=== PATIENT | female | born 1995 | race Caucasian/White ===

== ENCOUNTER 2020-02-22 21:08 | Emergency (ER) | payer BC, SELFPAY ==
--- NOTE | 2020-02-22 21:09 | ECG_ITS ---
Measurements Intervals [place] Rate: 84 P: 18 LA: 130 QRS: 57 QRSD: 87 T: 22 QT: 364 QTc: 431 Interpretive Statements SINUS RHYTHM BASELINE ARTIFACT- I, II, AVR, AVL, AVF NORMAL ECG Electronically Signed On 02-23-2020 6:51:10 CDT by Chace Bolanos D.O.
[2020-02-22 21:10] VITALS: BP 142/62; PULSE 88; RESP 16; TEMP 36.5; O2SAT 100
[2020-02-22 23:14] VITALS: BP 118/67; PULSE 76; RESP 16; TEMP 36.3; O2SAT 99
--- NOTE | 2020-02-23 00:02 | ED.GENADULT ---
HPI - General Adult General Chief complaint: Arrhythmia/Palpitations Stated complaint: 25 wks preg, elevated HR Time Seen by Provider: 02/22/20 23:35 History of Present Illness HPI narrative: Patient is a 24-year-old female who presents ER with concerns of palpitations and epigastric discomfort. Patient felt tightness to her sternum and then it moved up into her chest. She felt like her heart was racing it was going 97 bpm. No lightheadedness. [place] recurrence of the discomfort and came in for evaluation. Reports she has had issues with acid reflux throughout her but was not having burning in her stomach or back of her throat. No association with food that she can tell. No aggravating or alleviating factors. Related Data Home Medications Medication Instructions Recorded Confirmed No Home Medications 02/22/20 02/22/20 Allergies Allergy/AdvReac Type Severity Reaction Status Date / Time bee venom protein (honey bee) Allergy Numbness Verified 02/22/20 21:14 [bees] Review of Systems Review of Systems: All systems reviewed & are unremarkable except as noted in HPI and below Constitutional: Constitutional: Denies chills, Denies fever(s) and Denies weakness ENT: Denies nasal congestion and Denies sore throat Cardiovascular: Cardiovascular: Denies chest pain and Reports rapid heart rate Respiratory: Respiratory: Denies cough, Reports dyspnea and Denies wheezing Gastrointestinal: Gastrointestinal: Denies abdominal pain, Denies diarrhea, Denies nausea and Denies vomiting PMFSH Past Medical History Medical History (Updated 02/23/20 @ 01:49 by David Fernandez MD) GERD (gastroesophageal reflux disease) Surgical History Surgical History (Updated 02/23/20 @ 01:07 by David Fernandez MD) No pertinent past surgical history Family History Family History (Updated 04/17/16 @ 12:40 by DOCTOR UNKNOWN) Grandparent Diabetes mellitus Mother Diabetes mellitus Social History Social History Smoking status: Never smoker Alcohol intake: current Gender identity (if verbalized by the patient): Female Exam Narrative: Exam Narrative: GENERAL: Well-appearing, well-nourished, and in no acute distress. HEAD: Normocephalic, atraumatic. ENT: Mucous membranes moist. CHEST: Clear to auscultation. No respiratory distress. HEART: Regular rate and rhythm. Normal peripheral pulses. ABDOMEN: Soft, nontender, nondistended, gravid, normal active bowel sounds. EXTREMITIES: Normal range of motion. No edema. SKIN: Warm, dry, no rash. NEURO: Alert and oriented x3. Course Course Emergency Course: Symptoms resolved with GI cocktail. Discharge home. Vital Signs Vital signs: Vital Signs Temperature 97.7 F 02/22/20 21:10 Pulse Rate 88 02/22/20 21:10 Respiratory Rate 16 02/22/20 21:10 Blood Pressure 142/62 H 02/22/20 21:10 Pulse Oximetry 100 02/22/20 21:10 Temperature 97.3 F L 02/22/20 23:14 Pulse Rate 82 02/23/20 00:24 Respiratory Rate 16 02/23/20 00:24 Blood Pressure 119/55 L 02/23/20 00:24 Pulse Oximetry 98 02/23/20 00:24 Medical Decision Making Vital Signs Vital Signs: Vital Signs Temperature 97.7 F 02/22/20 21:10 Pulse Rate 88 02/22/20 21:10 Respiratory Rate 16 02/22/20 21:10 Blood Pressure 142/62 H 02/22/20 21:10 Pulse Oximetry 100 02/22/20 21:10 Temperature 97.3 F L 02/22/20 23:14 Pulse Rate 82 02/23/20 00:24 Respiratory Rate 16 02/23/20 00:24 Blood Pressure 119/55 L 02/23/20 00:24 Pulse Oximetry 98 02/23/20 00:24 Lab Data Result diagrams: 02/23/20 00:00 02/23/20 00:00 Labs: Lab Results 02/23/20 02/23/20 02/23/20 Range/Units 00:00 00:00 00:00 WBC 12.0 H (4.5-10.0) K/mm3 RBC 3.83 L (4.2-5.4) M/mm3 Hgb 11.7 L (12.0-15.0) g/dL Hct 33.7 L (37.0-47.0) % MCV 88.0 (80-100) fl MCH 30.5 (26-34) pg MCHC 34.7 (32-36) g/dl RDW 13.1 (11.5-1
[2020-02-23 00:09] LABS: Basophils Percent Auto 0.1 % (0.2-1.2); Eosinophils Absolute Auto 0.1 K/mm3 (0-0.3); Eosinophils Percent Auto 0.4 % (0-4.4); Hematocrit 33.7 % (37.0-47.0); Hemoglobin 11.7 g/dL (12.0-15.0); Immature Granulocyte Absolute 0.08 K/mm3 (0.00-0.031); Immature Granulocyte Percent A 0.7 % (0-0.5); Lymphocytes Absolute Auto 2.19 K/mm3 (0.9-3.2); Lymphocytes Percent Auto 18.2 % (18.3-44.2); Mean Corpuscular HGB Conc 34.7 g/dl (32-36); Mean Corpuscular Hemoglobin 30.5 pg (26-34); Mean Platelet Volume 10.1 fl (7.4-10.4); Monocytes Absolute Auto 0.7 K/mm3 (0.1-0.6); Monocytes Percent Auto 6.1 % (2.6-8.5); Neutrophils Percent Auto 74.5 % (45.5-73.1); Platelet Count Result 243 k/mm3 (150-375); Red Blood Count 3.83 M/mm3 (4.2-5.4); Red Cell Distribution Width 13.1 % (11.5-14.5)
[2020-02-23 00:16] LABS: INR 0.9; Prothrombin Time 12.1 Seconds (11.1-14.7)
[2020-02-23 00:17] LABS: Partial Thromboplastin Time 26.6 SECONDS (22.3-36.8)
[2020-02-23 00:18] LABS: Blood Urea Nitrogen 5 mg/dL (7-17); Carbon Dioxide 23 mmol/L (22-30); Chloride 106 mmol/L (98-107); Estimated CRCL calculation 194 ml/min; Estimated Glomerular Filt Rate > 60; Glucose 98 mg/dL (65-105); Potassium 3.9 mmol/L (3.4-5.0); Sodium 135 mmol/L (137-145)
[2020-02-23] MEDS: BELLADONNA ALK/PHENOB ELIX 10 ML, MAG HYDROX/ALUMINUM HYD/SIMETH 30 ML, LIDOCAINE HCL 2... PO (00:21)
[2020-02-23 00:24] VITALS: BP 119/55; PULSE 82; RESP 16; O2SAT 98
[2020-02-23 00:30] LABS: Troponin I < 0.012 ng/mL (0.000-0.034)
[2020-02-23 02:03] VITALS: BP 105/70; PULSE 82; RESP 14; TEMP 36.7; O2SAT 100
== END 2020-02-23 02:05 | disposition home or self-care (01) ==
PROVIDERS: Emergency Provider Emergency Medicine; PCP Physician Assistant
DX: O99.612 Diseases of the digestive system complicating pregnancy, second trimester (principal); K21.9 Gastro-esophageal reflux disease without esophagitis; Z3A.25 25 weeks gestation of pregnancy
CPT/HCPCS: 36415; 80048; 84484; 85025; 85610; 85730; 93005; 99284; A9270

== ENCOUNTER 2020-05-27 20:26 | Observation (INO) | payer BC, SELFPAY ==
[2020-05-27 21:00] VITALS: TEMP 36.8
--- NOTE | 2020-05-28 04:19 | OBADM ---
This patient, Piedad Sosa, admitted to the OB room Labor/Delivery/Recovery 106 for observation. Patient/family oriented to hospital policies and general routines including ID bracelet, bed and alarms, visiting hours, pain management, procedures, bathroom and other care routines, personal items, smoking policy, room service/diet, and visiting hours. Patient/Family are encouraged to report perceived risks to care and to ask questions if they do not understand what they are told or what they should do. Pt here for contractions. States contractions for past 2 hours. The contractions were stronger at home and have lessened intensity now.
--- NOTE | 2020-06-19 20:26 | PM.OBTRLD ---
OB - Triage/Final Diagnosis Final Diagnosis (1) False labor: Code(s): O47.9 - False labor, unspecified Status: Acute
== END 2020-05-27 23:25 | disposition home or self-care (01) ==
PROVIDERS: Admitting Provider Obstetrics & Gynecology; PCP Physician Assistant; Visit Provider Obstetrics & Gynecology
DX: O47.9 False labor, unspecified (principal); Z3A.00 Weeks of gestation of pregnancy not specified
CPT/HCPCS: G0378; G0379

== ENCOUNTER 2020-06-02 11:47 | Outpatient (CLI) | payer SELFPAY ==
[2020-06-02 12:43] VITALS: BP 116/64; PULSE 101
--- NOTE | 2020-06-02 13:10 | PC.NURSE ---
1239- called, informed pt came in for leaking fluid. ROM plus is negative, discharge orders received.
--- NOTE | 2020-06-02 13:11 | PC.NURSE ---
1147-Pt came in stating she woke up at 0950 with wet underwear. Denies contractions
== END 2020-06-02 12:55 ==
LOC: ANHOBOP 12:44 → ANHLDR 12:46
PROVIDERS: PCP Physician Assistant; Visit Provider Obstetrics & Gynecology
DX: O42.90 Premature rupture of membranes, unspecified as to length of time between rupture and onset of labor, unspecified weeks of gestation (principal); Z3A.00 Weeks of gestation of pregnancy not specified
CPT/HCPCS: 59025; 84112; 99199

== ENCOUNTER 2020-06-06 06:14 | Inpatient (IN) | payer BC, SELFPAY ==
[2020-06-06] VITALS (155 sets, daily range): BP systolic 80–140; BP diastolic 45–109; PULSE 67–111; TEMP 36.6–37.3; O2SAT 95–100; BMI 37.0
--- NOTE | 2020-06-06 06:14 | LDADM ---
This patient, Piedad Sosa, was admitted to Labor/Delivery/Recovery 107 on 06/06/20 at 06:14. Plans for labor, pain management and were discussed with patient. Patient/family oriented to hospital policies and general routines including ID bracelet, bed and alarms, visiting hours, pain management, procedures, bathroom and other care routines, personal items, smoking policy, room service/diet and guest tray routines, security routines, and visiting hours. Patient/Family are encouraged to report perceived risks to care and to ask questions if they do not understand what they are told or what they should do. See OBIX for further documentation.
[2020-06-06 07:32] LABS: Basophils Percent Auto 0.1 % (0.2-1.2); Eosinophils Absolute Auto 0.1 K/mm3 (0-0.3); Eosinophils Percent Auto 0.8 % (0-4.4); Hematocrit 36.5 % (37.0-47.0); Hemoglobin 12.4 g/dL (12.0-15.0); Immature Granulocyte Absolute 0.05 K/mm3 (0.00-0.031); Immature Granulocyte Percent A 0.5 % (0-0.5); Lymphocytes Absolute Auto 1.72 K/mm3 (0.9-3.2); Lymphocytes Percent Auto 18.6 % (18.3-44.2); Mean Corpuscular Hemoglobin 28.6 pg (26-34); Mean Corpuscular Volume 84.1 fl (80-100); Mean Platelet Volume 10.6 fl (7.4-10.4); Monocytes Absolute Auto 0.8 K/mm3 (0.1-0.6); Monocytes Percent Auto 8.3 % (2.6-8.5); Neutrophils Absolute Auto 6.7 K/mm3 (1.3-6.7); Neutrophils Percent Auto 71.7 % (45.5-73.1); Platelet Count Result 212 k/mm3 (150-375); Red Blood Count 4.34 M/mm3 (4.2-5.4); Red Cell Distribution Width 12.8 % (11.5-14.5); White Blood Count 9.3 K/mm3 (4.5-10.0)
[2020-06-06] MEDS: LACTATED RINGERS 1,000 ML 125 ML IV CONT ×4 (07:42→22:09)
--- NOTE | 2020-06-06 08:52 | WPDHPUPDATE1 ---
History and Physical Update Update Date/Time: 06/06/20 08:52 This patient is a 24-year-old 1 at 39 weeks gestation who presents for elective induction of labor. Artificial rupture of membranes was performed. There was clear fluid. She has 1-2, 50%, -2. Pitocin has been started. Expectant management will be continued. History and Physical has been reviewed, including an updated exam of the patient. There are NO changes in the patient's condition. Risks, benefits, and alternatives have been discussed and questions answered. Patient agrees to proceed with procedure.
--- NOTE | 2020-06-06 09:53 | WPDANESEPP ---
Anes - Eval Pre Procedure Procedure: labor epidural Date/Time: 06/06/20 09:53 Preop Diagnosis: labor pain Pre Op Diagnosis: iol Patient Data Age: 24 Gender: F Height: 5 ft 4 in Weight: 98 kg Last Vital Signs Temp 37.1 C 06/06/20 08:00 Pulse 77 06/06/20 09:30 BP 116/49 L 06/06/20 09:30 Allergies Allergy/AdvReac Type Severity Reaction Status Date / Time bee venom protein (honey bee) Allergy Numbness Verified 02/22/20 21:14 [bees] Home Medications Medication Instructions Recorded Confirmed Type PNV cmb#95-ferrous fumarate-FA 1 tablet PO DAILY 06/03/20 06/03/20 History [] Laboratory Tests 06/06/20 06/06/20 06/06/20 07:07 07:07 07:07 WBC 9.3 K/mm3 K/mm3 (4.5-10.0) RBC 4.34 M/mm3 M/mm3 (4.2-5.4) Hgb 12.4 g/dL g/dL (12.0-15.0) Hct 36.5 % L % (37.0-47.0) MCV 84.1 fl fl (80-100) MCH 28.6 pg pg (26-34) MCHC 34.0 g/dl g/dl (32-36) RDW 12.8 % % (11.5-14.5) Plt Count 212 k/mm3 k/mm3 (150-375) MPV 10.6 fl H fl (7.4-10.4) Immature Gran % (Auto) 0.5 % % (0-0.5) Neut % (Auto) 71.7 % % (45.5-73.1) Lymph % (Auto) 18.6 % % (18.3-44.2) [place] % (Auto) 8.3 % % (2.6-8.5) Eos % (Auto) 0.8 % % (0-4.4) Baso % (Auto) 0.1 % L % (0.2-1.2) Lymph # (Auto) 1.72 K/mm3 K/mm3 (0.9-3.2) [place] # (Auto) 0.8 K/mm3 H K/mm3 (0.1-0.6) Eos # (Auto) 0.1 K/mm3 K/mm3 (0-0.3) Baso # (Auto) 0.0 K/mm3 K/mm3 (0.0-0.1) Abs Immat Gran (auto) 0.05 K/mm3 H K/mm3 (0.00-0.031) Absolute Neuts (auto) 6.7 K/mm3 K/mm3 (1.3-6.7) Absolute Nucleated RBC 0.0 K/mm3 K/mm3 (0.0-0.012) Nucleated RBC % 0.0 % % (0.0-0.2) RPR Pending Blood Type O Positive Antibody Screen Negative Patient hx anesthesia problems: none Family hx anesthesia problems: none PMFSH Past Medical History Medical History (Updated 02/24/20 @ 00:00 by Arely Dickens) GERD (gastroesophageal reflux disease) Surgical History Surgical History (Updated 02/23/20 @ 01:07 by David Fernandez MD) No pertinent past surgical history Family History Family History (Updated 06/03/20 @ 13:16 by Marimar Fernandez RN) Grandparent Diabetes mellitus Breast cancer Chronic obstructive pulmonary disease Pulmonary fibrosis Mother Arthritis, rheumatoid Diabetes mellitus Social History Social History Smoking status: Former smoker Tobacco type: cigarettes Second hand tobacco smoke exposure: No Smoking end date: 06/06/20 Alcohol intake: current Substance use: never Gender identity (if verbalized by the patient): Female Spiritual care concerns: No Exam Day of Procedure 06/06/20 09:53
[2020-06-06] MEDS: fentaNYL CITRATE INJ (*CRX) 100 MCG/2 ML VIAL IV PUSH (12:39)
[2020-06-06] MEDS: ONDANSETRON INJ 4 MG/2 ML VIAL IV PUSH (13:21)
[2020-06-07] VITALS (181 sets, daily range): BP systolic 80–161; BP diastolic 43–102; PULSE 65–129; RESP 16–18; TEMP 36.6–37.7; O2SAT 92–100
[2020-06-07] MEDS: AMPICILLIN 2 GM/NS 100 ML 2 GM/100 ML BAG IVPB (02:54)
[2020-06-07] MEDS: ONDANSETRON INJ 4 MG/2 ML VIAL IV PUSH (04:34)
[2020-06-07] MEDS: fentaNYL CITRATE INJ (*CRX) 100 MCG/2 ML VIAL IV PUSH ×2 (05:45→07:28)
[2020-06-07] MEDS: PROMETHAZINE HCL 25 MG/ML AMPUL 12.5 MG IV PUSH (05:45)
[2020-06-07] MEDS: AMPICILLIN 1 GM/NS 50 ML 1 GM/50 ML BAG IVPB ×2 (06:40→10:25)
[2020-06-07] MEDS: LACTATED RINGERS 1,000 ML 125 ML IV CONT (06:41)
--- NOTE | 2020-06-07 08:32 | PM.OBPNVD ---
OB - PN: Subj Subjective Date/time seen: 06/07/20 08:32Patient is a 24-year-old 1 at term who was induced electively. Induction began approximately 25 hours ago. She has had Pitocin, artificial rupture membranes, antibiotics, external monitoring. She has progressed through the 1st stage of labor very slowly. At about 730 this morning she was 7.5 cm. There is reassuring heart tones. There was always reassuring status. Will continue to observe. OB - PN: Obj Data Labs CBC & Chem 7: 06/06/20 07:07 Labs: Laboratory Results - last 24 hr 06/06/20 07:07 Blood Type O Positive Antibody Screen Negative OB - PN A/P Time Spent With Patient Time: Total time spent is greater than 50% in coordination of care (as documented) at patient's floor/unit and/or counseling patient:
[2020-06-07 08:34] LABS: Rapid Plasma Reagin Non-Reactive (NonReactive)
[2020-06-07] MEDS: OXYTOCIN 30 UNITS/NS 500 ML 30 UNITS/500 ML BAG 999 UNITS IV CONT (10:59)
--- NOTE | 2020-06-07 11:12 | PM.OBPRVD ---
OB - Delivery Note Procedure Delivery date: 06/07/20 (vaginal delivery) Induction method: AROM and per pitocin protocol Delivery monitor: external FHT and internal uterine Route of delivery: Laceration description: Perineal - 2nd Degree Delivery repair: vicryl Specimen: Yes Estimated blood loss (mL): 295 Anesthesia type: Epidural Disposition: other () Baby Date of : 06/07/20 Time of : 10:49 Weeks of gestation at delivery: 39 gender: Female Weight (pounds): 7 Weight (ounces): 6 presentation: vertex position: Right Occiput Anterior Placenta delivery description: Spontaneous cord vessel description: 3 Vessels and Around Body x1 score one minute: 7 score five minutes: 8 Narrative: mother and baby in stable condition
[2020-06-07] MEDS: OXYTOCIN 30 UNITS/NS 500 ML 30 UNITS/500 ML BAG 125 UNITS IV CONT (11:35)
[2020-06-07] MEDS: BENZOCAINE 20% AER SPR (*SP) 56 GM CAN 1 SPRAY TOPICAL (12:54)
[2020-06-07] MEDS: WITCH HAZEL 40 PADS 1 PAD TOPICAL (12:54)
[2020-06-07] MEDS: IBUPROFEN 600 MG TABLET PO ×2 (12:55→21:17)
--- NOTE | 2020-06-07 14:47 | OBPPTRN ---
1357 Patient transferred to room #288 via W/C. Support person present. Oriented to unit, room, information board, rooming in, admission packet and security measures. Patient verbalizes understanding.
[2020-06-08] MEDS: IBUPROFEN 600 MG TABLET PO ×3 (05:02→19:08)
[2020-06-08 05:29] LABS: Hematocrit 26.3 % (37.0-47.0); Hemoglobin 8.7 g/dL (12.0-15.0)
--- NOTE | 2020-06-08 08:18 | PM.OBPNVD ---
OB - PN: Subj Subjective Date/time seen: 06/08/20 08:18 Patient comments: no complaints baby status: doing well OB - PN: Obj Data Labs CBC & Chem 7: 06/08/20 04:11 Labs: Laboratory Results - last 24 hr 06/06/20 06/08/20 07:07 04:11 Hgb 8.7 L D Hct 26.3 L RPR Non-reactive OB - PN A/P Plan day: 1 Plan: routine care Time Spent With Patient Time: Total time spent is greater than 50% in coordination of care (as documented) at patient's floor/unit and/or counseling patient: Time with patient: less than 15 minutes Review of Systems Review of Systems: All systems reviewed & are unremarkable except as noted in HPI and below Exam Const: General: comfortable Resp: Effort & Inspection: normal respiratory effort Psych: Appearance: grossly normal Affect: normal affect Attitude: cooperative Judgement: Good judgement present (Psych)
[2020-06-08 08:20] VITALS: BP 121/59; PULSE 92; RESP 16; TEMP 36.4; O2SAT 99
--- NOTE | 2020-06-08 08:45 | PC.NURSE ---
Consulted with patient, mother states she is concerned infant is not waking for feedings. Assured mother it is normal to wake for feeding the first several days of life. Mother has bottle fed during the night and has not attempted infant at breast. Infant is more awake and easily stimulated than previous day. Mother Mother is attempting to breast in cradle, allowing to self attach with shallow latch. Reviewed feeding cues, frequencies, duration of feedings, feeding elimination flow sheet, and signs of adequate intake. Demonstrated stimulation techniques to wake for feeding. Assisted with to breast. Reviewed positioning/alignment in cross cradle, holding breast in U hold and guided asymmetrical latch on. Discussed the rational for each. Infant was able to latch correctly. Infant nursed eagerly for short bursts with steady draws and occasional swallowing noted, followed with long pausing. Reviewed signs of a correct latch, effective nursing and suck swallow ratio. was able to maintain latch without discomfort to mother. Nipple care reviewed. Suggested to stimulate while feeding to keep infant awake and effectively feeding and to assist with maintaining deep latch. Mother will continue to supplement after breastfeedings and will initiate pumping to assist with stimulation of milk supply.
--- NOTE | 2020-06-08 09:14 | WPDANLDPN2 ---
Anes-Prog Note L&D Date/Time: 06/08/20 09:14 Comfortable throughout: labor and delivery Neuraxial method: epidural Epidural/Spinal procedure site: clean & non-tender Neuro status: Neuro function grossly intact. Cardiovascular status: normal Respiratory status: normal Airway patency: baseline Mental status: baseline Post-Op hydration status: normal Vital Signs: Last Vital Signs Temp 36.4 C L 06/08/20 08:20 Pulse 92 06/08/20 08:20 Resp 16 06/08/20 08:20 BP 121/59 L 06/08/20 08:20 Pulse Ox 99 06/08/20 08:20 Pain score (VAS): 0 Post-procedural complaints: none Patient feedback: Patient satisfied with anesthetic care.
[2020-06-08] MEDS: ACETAMINOPHEN 325 MG TABLET 650 MG PO ×2 (09:30→16:15)
[2020-06-08] MEDS: MULTIVIT/MIN/PREN/FOL AC/IRON TABLET 1 TAB PO (09:30)
[2020-06-08] MEDS: POLYSACCHARIDE IRON COMPLEX 150 MG CAPSULE PO ×2 (09:30→16:16)
[2020-06-08] MEDS: DOCUSATE SODIUM 100 MG CAPSULE PO ×2 (09:30→16:16)
[2020-06-08] MEDS: LANOLIN (LANSINOH) 7.5 GM CREAM 1 APPLIC TOPICAL (09:32)
[2020-06-08 09:33] VITALS: PULSE 92; RESP 16; O2SAT 99
--- NOTE | 2020-06-08 09:33 | PC.NURSE ---
PT introductions made and plan of care discussed per post , pain management, breast feeding, daily care activities. PT verbalized understanding of such care.
[2020-06-08] MEDS: TETANUS,DIPHTHERIA,AC PERTUSSIS ADULT (0.5 ML) BOOSTRIX IM (10:54)
--- NOTE | 2020-06-08 12:30 | PC.NURSE ---
Breast pump provided due to ineffective feeding. Instructions given on breast pump care and usage, pumping schedule, nipple care, and collection and storage of breast milk. Encouraged [id number], breast massage and manual expression to stimulate supply. Assessed patient for correct flange size, placement and draw. Patient verbalizes and demonstrates understanding of instructions.
[2020-06-08 19:41] VITALS: BP 116/59; PULSE 98; RESP 20; TEMP 36.5; O2SAT 99
--- NOTE | 2020-06-09 07:45 | PM.OBPNVD ---
OB - PN: Subj Subjective Date/time seen: 06/09/20 07:45 Patient comments: no complaints and pain well controlled baby status: doing well OB - PN: Obj Data Labs CBC & Chem 7: 06/08/20 04:11 OB - PN A/P Plan day: 2 Plan: routine care Time Spent With Patient Time: Total time spent is greater than 50% in coordination of care (as documented) at patient's floor/unit and/or counseling patient: Time with patient: less than 15 minutes Review of Systems Review of Systems: All systems reviewed & are unremarkable except as noted in HPI and below Exam Narrative: Exam Narrative: Fundus firm and vaginal flow controlled. Lower ext normal. No redness, warmth, or tenderness. Homans negative. Const: General: cooperative and healthy appearing Limitations: no limitations Resp: Effort & Inspection: normal respiratory effort GI: GI Palp: Yes Soft to palpation Neuro: General: oriented to person, oriented to place and oriented to time Extrem: General: normal to inspection OB - PN: Obj Exam Vital signs: Temp Pulse Resp BP Pulse Ox 97.7 F 98 20 116/59 L 99 06/08/20 19:41 06/08/20 19:41 06/08/20 19:41 06/08/20 19:41 06/08/20 19:41
[2020-06-09 08:20] VITALS: BP 126/76; PULSE 102; RESP 18; TEMP 37.4; O2SAT 99
--- NOTE | 2020-06-09 09:00 | PC.NURSE ---
PT introductions made and plan of care discussed per post , pain management, breast /bottle feeding, daily care activities and pending discharge to NCB status. PT verbalized understanding of such care.
--- NOTE | 2020-06-09 09:18 | WPDANLDPN2 ---
Anes-Prog Note L&D Date/Time: 06/09/20 09:18 Comfortable throughout: labor and delivery Neuraxial method: epidural Epidural/Spinal procedure site: clean & non-tender Neuro status: Neuro function grossly intact. Cardiovascular status: normal Respiratory status: normal Airway patency: baseline Mental status: baseline Post-Op hydration status: normal Vital Signs: Last Vital Signs Temp 36.5 C 06/08/20 19:41 Pulse 98 06/08/20 19:41 Resp 20 06/08/20 19:41 BP 116/59 L 06/08/20 19:41 Pulse Ox 99 06/08/20 19:41 Pain score (VAS): 0 Post-procedural complaints: none Patient feedback: Patient satisfied with anesthetic care.
[2020-06-09 09:50] VITALS: PULSE 102; RESP 18; O2SAT 99
[2020-06-09] MEDS: WITCH HAZEL 40 PADS 1 PAD TOPICAL (09:55)
[2020-06-09] MEDS: DOCUSATE SODIUM 100 MG CAPSULE PO ×2 (09:56→17:38)
[2020-06-09] MEDS: MULTIVIT/MIN/PREN/FOL AC/IRON TABLET 1 TAB PO (09:56)
[2020-06-09] MEDS: POLYSACCHARIDE IRON COMPLEX 150 MG CAPSULE PO ×2 (09:56→17:38)
[2020-06-09] MEDS: IBUPROFEN 600 MG TABLET PO ×2 (09:56→17:37)
--- NOTE | 2020-06-09 12:40 | PC.NURSE ---
Mother is able to independently latch infant with appropriate positioning/alignment. She denies any nipple discomfort, is feeding as required and waking to feed if needed. is more awake and eager to latch. Reviewed feeding cues, frequencies, duration of feedings, feeding elimination flow sheet, and signs of adequate intake. Reviewed positioning/alignment in cross cradle, holding breast in U hold and guided asymmetrical latch on. was able to latch correctly. Infant nursed eagerly, with steady draws and frequent swallowing noted. Reviewed signs of a correct latch, effective nursing and suck swallow ratio. was able to maintain latch without discomfort to mother. Nipple care reviewed. Suggested mother stimulate infant while feeding to increase intake and to assist with maintaining deep latch.
--- NOTE | 2020-06-10 09:45 | PC.NURSE ---
Mother is able to independently latch with appropriate positioning/alignment. She denies any nipple discomfort, is feeding as required and waking infant to feed if needed. Infant has had at least several effective feedings in the past 24 hours, and is currently meeting outcomes for weight, output, jaundice and feeding frequencies. Mother continues to supplement 20-25mls after most feedings due to the jaundice and sleepy infant. Mother states she will supplement until her milk is in and infant is gaining weight. Mother has a pump at home and will pump after every other feeding to help stimulate milk supply. Mother states she feels confident to continue with current feeding plan at home. Reviewed transition to breast milk, signs of adequate intake, and engorgement/relief. Instructed to call ICP if intake/output less than required. Reviewed regular medications mother is taking. Information provided per [place]. Reviewed community resources on the [employer] website and in the Mom/Baby guide. Information on outpatient services provided. Mother has no further questions at this time. Discussed when may be ready to increase supplementation and when infant may be ready to decrease discontinue supplementation. Suggested mother continue supplement until seen by ICP.
[2020-06-11 09:21] VITALS: BP 118/81; PULSE 60; RESP 18; TEMP 37
--- NOTE | 2020-06-13 18:14 | P.DS_ITS ---
DS: Admitting Diagnosis Admitting Diagnosis Admitting Diagnosis: iol OB - DS: Summary OB Procedures : None OB Procedures Intrapartum: Spontaneous Vag Delivery OB Procedures: : None Time Spent with Patient Time attestation: Total time spent providing and/or coordinating discharge services: Discharge Plan Discharge Attending physician on discharge: Sarah Cuellar Consulting providers: Roseanna Rausch ; Lizbeth Acevedo Discharging Clinician: Lizbeth Acevedo Patient Disposition: Home, Self-Care Activity: pelvic rest Diet: as tolerated Discharge Instructions: Education: Mom and Baby Guide Given to: Mother Follow-Up: Call your delivering provider's office for an appointment to be seen in: 6 Weeks Mom and baby should come to the [facility] for the follow-up appointment. What to expect at your follow-up visit: Blood Pressure Check Call [phone] if you are unable to keep your appointment time. BREAST CARE: * Wear a snug supportive bra. * For engorgement discomfort: Breast Feeding: * Apply warm moist washcloths * Express milk as needed to relieve engorgement * Wear loose clothing Bottle Feeding: * May apply ice packs * For sore nipples: * Identify correct latch-on * Apply warm moist washcloths before and after nursing * Air dry nipples after nursing * May apply Lansinoh cream to nipples PERINEAL CARE: * Until bleeding stops, use your gamal bottle after urinating * Change your pad frequently throughout the day * You may take sitz baths several times a day (fill your bathtub with warm water and soak for 20 minutes.) Do NOT bathe in the water * No tub baths until seen by your physician - You may shower ACTIVITY: * Rest as much as possible. * Do not exercise or lift anything heavier than your baby (such as laundry or other children.) * Avoid stairs or driving as much as possible. * Do not put anything into the vagina. No douching, tampons, or sexual activity until seen by physician. NOTIFY PHYSICIAN IF YOU HAVE ANY QUESTIONS OR IF ANY OF THE FOLLOWING SYMPTOMS OCCUR: * If your perineum becomes red, swollen, or more painful than what you have experienced in the hospital. * If your vaginal bleeding becomes foul smelling. * If your vaginal bleeding becomes more heavy than a period or if your bleeding changes from pink to bright red. However, you may pass an occasional walnut- sized clot once or twice for the first week . * If you experience a sharp, shooting pain in you calves. * If you discover a hard, reddened area on your breast or if you experience flu- like symptoms. * If you have a fever of 100.4 or greater DIET: * Eat regular, well-balanced meals. * Drink plenty of fluids daily. If , drink to thirst. Patient Instructions: Antibiotic Form Stand Alone Forms: General Discharge Information Follow-up/Referrals: Sarah Cuellar MD [Physician] - Discharge Medications: New polysaccharide iron complex 150 mg iron Capsule 150 mg PO BIDWM Qty: 60 RF: 0 Continued PNV cmb#95-ferrous fumarate-FA [] 28 mg iron- 800 mcg Tablet 1 tablet PO DAILY RF: 0 Date of admission: 06/06/20 06:14 Primary Care Provider: Leti,Melvin Admitting Provider: Sarah Cuellar Attending physician on admission: Sarah Cuellar
--- NOTE | 2020-06-16 16:19 | PM.OBDSVD ---
DS: Admitting Diagnosis Admitting Diagnosis Admitting Diagnosis: iol OB - DS: Summary OB Procedures : None OB Procedures Intrapartum: Spontaneous Vag Delivery and Uterine exploration OB Procedures: : None Time Spent with Patient Time attestation: Total time spent providing and/or coordinating discharge services: Discharge Plan Discharge Attending physician on discharge: Sarah Cuellar Consulting providers: Roseanna Rausch ; Lizbeth Acevedo Discharging Clinician: Lizbeth Acevedo Patient Disposition: Home, Self-Care Activity: pelvic rest Diet: as tolerated Discharge Instructions: Education: Mom and Baby Guide Given to: Mother Follow-Up: Call your delivering provider's office for an appointment to be seen in: 6 Weeks Mom and baby should come to the [facility] for the follow-up appointment. What to expect at your follow-up visit: Blood Pressure Check Call [phone] if you are unable to keep your appointment time. BREAST CARE: * Wear a snug supportive bra. * For engorgement discomfort: Breast Feeding: * Apply warm moist washcloths * Express milk as needed to relieve engorgement * Wear loose clothing Bottle Feeding: * May apply ice packs * For sore nipples: * Identify correct latch-on * Apply warm moist washcloths before and after nursing * Air dry nipples after nursing * May apply Lansinoh cream to nipples PERINEAL CARE: * Until bleeding stops, use your gamal bottle after urinating * Change your pad frequently throughout the day * You may take sitz baths several times a day (fill your bathtub with warm water and soak for 20 minutes.) Do NOT bathe in the water * No tub baths until seen by your physician - You may shower ACTIVITY: * Rest as much as possible. * Do not exercise or lift anything heavier than your baby (such as laundry or other children.) * Avoid stairs or driving as much as possible. * Do not put anything into the vagina. No douching, tampons, or sexual activity until seen by physician. NOTIFY PHYSICIAN IF YOU HAVE ANY QUESTIONS OR IF ANY OF THE FOLLOWING SYMPTOMS OCCUR: * If your perineum becomes red, swollen, or more painful than what you have experienced in the hospital. * If your vaginal bleeding becomes foul smelling. * If your vaginal bleeding becomes more heavy than a period or if your bleeding changes from pink to bright red. However, you may pass an occasional walnut-sized clot once or twice for the first week . * If you experience a sharp, shooting pain in you calves. * If you discover a hard, reddened area on your breast or if you experience flu-like symptoms. * If you have a fever of 100.4 or greater DIET: * Eat regular, well-balanced meals. * Drink plenty of fluids daily. If , drink to thirst. Patient Instructions: Antibiotic Form Stand Alone Forms: General Discharge Information Follow-up/Referrals: Sarah Cuellar MD [Physician] - Discharge Medications: New polysaccharide iron complex 150 mg iron Capsule 150 mg PO BIDWM Qty: 60 RF: 0 Continued PNV cmb#95-ferrous fumarate-FA [] 28 mg iron- 800 mcg Tablet 1 tablet PO DAILY RF: 0 Date of admission: 06/06/20 06:14 Primary Care Provider: Leti,Melvin Admitting Provider: Sarah Cuellar Attending physician on admission: Sarah Cuellar Condition: Stable
== END 2020-06-09 18:00 | disposition home or self-care (01) | DRG 807 ==
LOC: ANHLDR 06:17 → ANHOB2 06-07 14:52
PROVIDERS: Advanced Practice Midwife; Admitting Provider Obstetrics & Gynecology; PCP Physician Assistant; Visit Provider Obstetrics & Gynecology
DX: O69.82X0 Labor and delivery complicated by other cord entanglement, without compression, not applicable or unspecified (principal); Z37.0 Single live birth; Z3A.39 39 weeks gestation of pregnancy; Z23 Encounter for immunization; O36.8330 Maternal care for abnormalities of the fetal heart rate or rhythm, third trimester, not applicable or unspecified; O70.1 Second degree perineal laceration during delivery; O42.92 Full-term premature rupture of membranes, unspecified as to length of time between rupture and onset of labor; O99.62 Diseases of the digestive system complicating childbirth; K21.9 Gastro-esophageal reflux disease without esophagitis
CPT/HCPCS: 36415; 85014; 85018; 85025; 86592; 86850; 86900; 86901; 90471; 90653; 90715; A9270; G0008; J0290; J2405; J2550; J2590; J2795; J3010; J7120

== ENCOUNTER 2020-09-08 12:50 | Outpatient (CLI) | payer BC, SELFPAY ==
--- NOTE | ~2020-09-08 | US_ITS ---
EXAMINATION: US OB <=14 wk fetus w TV DATE: 09/08/2020 13:31 INDICATION: Left lower quadrant abdominal pain. TECHNIQUE: Real-time transabdominal and transvaginal pelvic ultrasound was performed. COMPARISON: None. FINDINGS: TRANSABDOMINAL ULTRASOUND: The uterus measures 11.1 x 6.8 x 4.9 cm. TRANSVAGINAL ULTRASOUND: There is an intrauterine gestational sac with mean diameter of 1.2 cm, which correlates with an estimated gestational age of 5 weeks and 6 days +/- 4 days. A yolk sac is identif ied. No pole is identified. The right ovary measures 3.5 x 1.9 x 1.2 cm. The left ovary measure s 2.9 x 2.3 x 2.5 cm. There is no free fluid in the pelvis. IMPRESSION: 1. Single intrauterine gestation with estimated date of delivery of 05/05/2021. Reviewed, dictated and finalized at location A. ENGINEER
== END 2020-09-08 12:51 | disposition home or self-care (01) ==
LOC: ANHIMG 12:55
PROVIDERS: PCP Physician Assistant; Visit Provider Obstetrics & Gynecology
DX: R10.32 Left lower quadrant pain (principal)
CPT/HCPCS: 76801; 76817

== ENCOUNTER 2020-11-12 19:31 | Emergency (ER) | payer BC, SELFPAY ==
[2020-11-12 19:42] VITALS: BP 128/60; PULSE 81; RESP 18; TEMP 36.3; O2SAT 100
--- NOTE | 2020-11-12 19:46 | ECG_ITS ---
Measurements Intervals [place] Rate: 76 P: 21 HI: 145 QRS: 62 QRSD: 83 T: 37 QT: 370 QTc: 416 Interpretive Statements SINUS RHYTHM BASELINE ARTIFACT- I, II, III, AVR NORMAL ECG Electronically Signed On 11-13-2020 8:19:49 CDT by Chace Bolanos D.O.
--- NOTE | 2020-11-12 19:54 | ED.DIZZY ---
HPI - Dizziness General Chief Complaint: Dizziness Stated Complaint: dizziness, 15 weeks Time Seen by Provider: 11/12/20 19:52 History of Present Illness HPI Narrative: 25 yo female at 15 weeks presents to the ED for headache and dizziness. She has been having similar episodes for the past few weeks. She was seen by her OB and given Fioricet. She tried taking it today without any improvement. She says the dizziness feels like her head is spinning. No triggering or exacerbating factors. She had recent labs done which she reports show abnormal liver enzymes. She says that her OB was planning to refer her to a record tabulating clerk, she is not sure what his concern was. Related Data Home Medications Medication Instructions Recorded Confirmed PNV cmb#95-ferrous fumarate-FA 1 tablet PO DAILY 06/03/20 06/03/20 [] Allergies Allergy/AdvReac Type Severity Reaction Status Date / Time bee venom protein (honey bee) Allergy Numbness Verified 02/22/20 21:14 [bees] Review of Systems Review of Systems: All systems reviewed & are unremarkable except as noted in HPI and below Constitutional: Constitutional: Reports chills, Denies fatigue, Denies fever(s) and Denies weakness Eyes: Eyes: Reports change in vision ENT: Reports dizziness and Denies sore throat Cardiovascular: Cardiovascular: Denies chest pain Respiratory: Respiratory: Denies dyspnea Gastrointestinal: Gastrointestinal: Reports nausea Genitourinary: Genitourinary: Reports no additional female genitourinary complaints Neurologic: Reports as per HPI [facility] Past Medical History Medical History GERD (gastroesophageal reflux disease) Surgical History Surgical History (Updated 02/23/20 @ 01:07 by David Fernandez MD) No pertinent past surgical history Family History Family History (Updated 06/03/20 @ 13:16 by Marimar Fernandez RN) Grandparent Diabetes mellitus Breast cancer Chronic obstructive pulmonary disease Pulmonary fibrosis Mother Arthritis, rheumatoid Diabetes mellitus Social History Social History Smoking status: Former smoker Tobacco type: cigarettes Second hand tobacco smoke exposure: No Smoking end date: 06/06/20 Alcohol intake: current Substance use: never Gender identity (if verbalized by the patient): Female Spiritual care concerns: No Exam Const: General: healthy appearing, no acute distress and alert Orientation/consciousness: patient oriented x3 HENMT: Head: normal to inspection Neck: Neck: normal visual inspection and no lymphadenopathy Chest: Chest palpation & inspection: no tenderness Resp: Effort & Inspection: normal respiratory effort Auscultation: clear to auscultation bilaterally, no rales, no rhonchi and no wheezes Cardio: Jugular venous distension: no JVD Rate: regular rate Rhythm: regular rhythm Heart sounds: no murmurs GI: Inspection: non-distended GI Palp: Yes Soft to palpation and No Tenderness to palpation present (GI) Skin: General skin exam: normal color Neuro: General: patient oriented x3 and moves all extremities Cranial nerves: Yes Nystagmus not present Speech: normal speech Extrem: General: no edema Psych: Appearance: well kempt Affect: normal affect Course Vital Signs Vital signs: Vital Signs Temperature 36.3 C L 11/12/20 19:42 Pulse Rate 81 11/12/20 19:42 Respiratory Rate 18 11/12/20 19:42 Blood Pressure 128/60 11/12/20 19:42 Pulse Oximetry 100 11/12/20 19:42 Temperature 36.3 C L 11/12/20 19:42 Pulse Rate 74 11/12/20 21:55 Respiratory Rate 20 11/12/20 21:55 Blood Pressure 110/67 11/12/20 21:55 Pulse Oximetry 100 11/12/20 21:55 MDM - Dizziness MDM Narrative Medical decision making narrative: Case discussed with Dr. Cuellar. He would like her to call the office on Saturday to schedule follow-up. Medical Records Attestation: I review
[2020-11-12 20:10] LABS: Basophils Percent Auto 0.2 % (0.2-1.2); Eosinophils Absolute Auto 0.2 K/mm3 (0-0.3); Eosinophils Percent Auto 1.4 % (0-4.4); Hematocrit 38.3 % (37.0-47.0); Hemoglobin 13.3 g/dL (12.0-15.0); Immature Granulocyte Absolute 0.06 K/mm3 (0.00-0.031); Immature Granulocyte Percent A 0.5 % (0-0.5); Lymphocytes Absolute Auto 2.61 K/mm3 (0.9-3.2); Mean Corpuscular HGB Conc 34.7 g/dl (32-36); Mean Corpuscular Hemoglobin 28.5 pg (26-34); Mean Platelet Volume 9.7 fl (7.4-10.4); Monocytes Absolute Auto 0.8 K/mm3 (0.1-0.6); Monocytes Percent Auto 6.9 % (2.6-8.5); Neutrophils Absolute Auto 8.2 K/mm3 (1.3-6.7); Platelet Count Result 252 k/mm3 (150-375); Red Blood Count 4.67 M/mm3 (4.2-5.4); Red Cell Distribution Width 14.2 % (11.5-14.5); White Blood Count 11.9 K/mm3 (4.5-10.0)
[2020-11-12 20:18] LABS: INR 0.8; Prothrombin Time 11.8 Seconds (11.1-14.7)
[2020-11-12 20:21] LABS: Alanine Aminotransferase 12 U/L (4-35); Alkaline Phosphatase 73 U/L (38-126); Anion Gap 6 mmol/L (8-16); Aspartate Amino Transferase 18 U/L (14-36); Bilirubin,Total 0.2 mg/dL (0.2-1.3); Blood Urea Nitrogen 8 mg/dL (7-17); Calcium 9.4 mg/dL (8.4-10.2); Carbon Dioxide 25 mmol/L (22-30); Chloride 106 mmol/L (98-107); Estimated CRCL calculation 156 ml/min; Estimated Glomerular Filt Rate > 60; Glucose 106 mg/dL (65-105); Sodium 137 mmol/L (137-145)
[2020-11-12] MEDS: MECLIZINE HCL 25 MG TABLET PO (20:24)
[2020-11-12] MEDS: METOCLOPRAMIDE HCL INJ 10 MG/2 ML VIAL IV PUSH (20:24)
[2020-11-12] MEDS: SODIUM CHLORIDE 0.9% IV 1,000 ML 999 ML IV CONT (20:24)
[2020-11-12 20:26] LABS: Add Urine Microscopic? YES; Amorphous Sediment Urine Few; Appearance Urine Cloudy (Clear); Bacteria Urine Trace /hpf; Bilirubin Urine Negative (Negative); Blood Urine Negative (Negative); Color Urine Yellow (Yellow); Glucose Urine UA Negative (Negative); Ketones Urine Negative (Negative); Leukocyte Esterase Ur Negative LEU/UL (Negative); Mucus Urine Rare /lpf; Nitrate Urine Negative (Negative); Protein Urine 1+ mg/dL (Negative); RBC Urine 0-2 /hpf (0-2); Specific Grav Ur 1.021 (1.001-1.035); Squamous Epithelial Cell Urine Moderate /hpf (Few); WBC Urine 0-3 /hpf
[2020-11-12 21:11] VITALS: BP 111/70; PULSE 88; RESP 18; O2SAT 99
[2020-11-12 21:55] VITALS: BP 110/67; PULSE 74; RESP 20; O2SAT 100
--- NOTE | 2020-11-19 15:54 | PC.NURSE ---
LATE ENTRY This note is being entered to document information to the patient's record. The following information was omitted on [11/12/20], by [MISA]. NS START 2124 END 2204
== END 2020-11-12 22:20 | disposition home or self-care (01) ==
PROVIDERS: Emergency Provider Emergency Medicine; PCP Physician Assistant
DX: O26.892 Other specified pregnancy related conditions, second trimester (principal); R51.9 Headache, unspecified; R42 Dizziness and giddiness; O99.612 Diseases of the digestive system complicating pregnancy, second trimester; K21.9 Gastro-esophageal reflux disease without esophagitis; Z87.891 Personal history of nicotine dependence; Z3A.15 15 weeks gestation of pregnancy
CPT/HCPCS: 36415; 80053; 81001; 85025; 85610; 85730; 93005; 96361; 96374; 99284; A9270; J2765; J7030

== ENCOUNTER 2021-02-21 16:08 | Emergency (ER) | payer BC, SELFPAY ==
[2021-02-21 16:12] VITALS: BP 116/80; PULSE 94; RESP 16; TEMP 36.9; O2SAT 99
--- NOTE | 2021-02-21 16:41 | ED.EYEPROB ---
HPI - Eye Problem General Chief complaint: Eye Problems Stated complaint: eye irritation Source: patient and RN notes reviewed Mode of arrival: ambulatory History of Present Illness HPI Narrative: This is a 25-year-old female who presented to urgent care with right ear pain post trauma. According to patient she was completing some work around the house when metal shavings got into her right eye patient notes that she did get a large piece of metal out of her right eye with her fingernails but was unable to get the small particles. Patient does not complain of decreased visual ro disturbance,blurred vision, n/v , headache photophobia, eye twitching, blepharospasm she does complain of pain to the right eye with movement. Vision tested at 20/50 both eyes. Fluorescein eye test performed no ulceration or abrasion noticed. Before procedure patient used rinse to rinse her eyes, redness a small piece of material on tissue paper. MD chief complaint: eye pain, eye redness, eye injury and foreign body Location: right eye Related Data Home Medications Medication Instructions Recorded Confirmed PNV cmb#95-ferrous fumarate-FA 1 tablet PO DAILY 06/03/20 06/03/20 [] Allergies Allergy/AdvReac Type Severity Reaction Status Date / Time bee venom protein (honey bee) Allergy Numbness Verified 02/22/20 21:14 [bees] Review of Systems Review of Systems: Narrative: A 14 organ system Review of Systems was performed and pertinent positives included in the HPI, otherwise remaining ROS is negative. PMFSH Past Medical History Medical History GERD (gastroesophageal reflux disease) Surgical History Surgical History (Updated 02/23/20 @ 01:07 by David Fernandez MD) No pertinent past surgical history Family History Family History (Updated 06/03/20 @ 13:16 by Marimar Fernanedz RN) Grandparent Diabetes mellitus Breast cancer Chronic obstructive pulmonary disease Pulmonary fibrosis Mother Arthritis, rheumatoid Diabetes mellitus Social History Social History Smoking status: Former smoker Tobacco type: cigarettes Second hand tobacco smoke exposure: No Smoking end date: 06/06/20 Alcohol intake: current Substance use: never Gender identity (if verbalized by the patient): Female Spiritual care concerns: No Exam Narrative: Exam Narrative: GENERAL: This is a well-nourished, well-developed patient, in no apparent distress. HEAD: normocephalic, atraumatic. EYES: Refer below EARS: External ears normal, auditory canals clear and without drainage, TMs normal without perforation. Hearing grossly intact. NOSE: External nose normal with no obvious nasal discharge, nares without redness, no rhinorrhea. THROAT: Mucous membranes moist, posterior pharynx clear. NECK: Neck supple, non-tender without lymphadenopathy, masses or thyromegaly. CARDIOVASCULAR: Regular rate and rhythm without murmurs, gallops, or rubs. RESPIRATORY: Clear to auscultation. Breath sounds equal bilaterally. No wheezes, rales, or rhonchi. GASTROINTESTINAL: Abdomen soft, non-tender, nondistended. Bowel sounds are active. No hepato-splenomegaly, or palpable masses. No guarding. SKIN: warm, intact with no suspicious lesions or rash, good texture and turgor. NEURO: awake, alert, and oriented to person, place and time. There were no obvious focal neurologic abnormalities. Steady gait EXTREMITIES: Normal range of motion. No edema. No calf tenderness. Negative Homans sign bilaterally. BACK: Nontender without deformity or crepitance. No flank tenderness. Eyes: Visual Concepcion: normal visual concepcion by confrontation Alignment and Position: alignment normal Periorbital: periorbital findings normal Eyelids: eyelids normal Conjunctivae: conjunctival abnormality (Erythematous) right Cornea: fluorescein used Pupils: Equal, round and reactive pupils present Direct Ophthalmoscopy: normal light
== END 2021-02-21 16:45 | disposition home or self-care (01) ==
PROVIDERS: Emergency Provider Nurse Practitioner; PCP Physician Assistant
DX: O9A.213 Injury, poisoning and certain other consequences of external causes complicating pregnancy, third trimester (principal); T15.11XA Foreign body in conjunctival sac, right eye, initial encounter; Z3A.36 36 weeks gestation of pregnancy; X58.XXXA Exposure to other specified factors, initial encounter; Z87.891 Personal history of nicotine dependence; O99.613 Diseases of the digestive system complicating pregnancy, third trimester; K21.9 Gastro-esophageal reflux disease without esophagitis
CPT/HCPCS: 99213; A9270; G0463

== ENCOUNTER 2021-04-03 00:03 | Outpatient (RCR) | payer BC, SELFPAY ==
[2021-04-03 00:42] VITALS: BP 121/75; PULSE 80
== END 2021-05-04 12:46 | disposition home or self-care (01) ==
LOC: ANHOBOP 00:03
PROVIDERS: PCP Physician Assistant; Visit Provider Obstetrics & Gynecology
DX: O36.8130 Decreased fetal movements, third trimester, not applicable or unspecified (principal); Z3A.35 35 weeks gestation of pregnancy
CPT/HCPCS: 59025

== ENCOUNTER 2021-04-23 12:10 | Emergency (ER) | payer BC, SELFPAY ==
--- NOTE | ~2021-04-23 | US_ITS ---
US venous doppler LE RT DATE: 04/23/2021 13:33 INDICATION: Right calf pain TECHNIQUE: Real-time and color flow imaging and Doppler analysis of the veins of the right lower extr emity COMPARISON: None FINDINGS: The right greater saphenous vein is patent. There is spontaneous and phasic flow and normal augmentation and color flow signal and normal compression of the deep veins of the right lower extre mity. IMPRESSION: No evidence of deep venous thrombosis of right leg Reviewed, dictated and finalized at Location [facility]. Reviewed, dictated and finalized at location A.
[2021-04-23 12:12] VITALS: BP 134/84; PULSE 99; RESP 17; TEMP 36.3; O2SAT 98
--- NOTE | 2021-04-23 12:59 | ED.LOWEXIN ---
HPI - Extremity Injury (Lower) General Chief Complaint: Extremity Injury, Lower Stated Complaint: 38 weeks /leg cramp Time Seen by Provider: 04/23/21 12:34 History of Present Illness HPI Narrative: Healthy 25 yo female at 38 weeks gestation presents to the ED c/o leg pain. Right calf cramp for the past few days. Associated with swelling in the feet and ankles. Called OB and they sent her here to be checked for a DVT. No CP, SOB, abdominal pain, vaginal bleeding. Related Data Home Medications Medication Instructions Recorded Confirmed PNV cmb#95-ferrous fumarate-FA 1 tablet PO DAILY 06/03/20 06/03/20 [] Allergies Allergy/AdvReac Type Severity Reaction Status Date / Time bee venom protein (honey bee) Allergy Numbness Verified 04/23/21 12:12 [bees] Review of Systems Review of Systems: All systems reviewed & are unremarkable except as noted in HPI and below Constitutional: Constitutional: Denies chills and Denies fever(s) Cardiovascular: Cardiovascular: Denies chest pain Respiratory: Respiratory: Denies dyspnea Gastrointestinal: Gastrointestinal: Denies abdominal pain, Denies nausea and Denies vomiting Genitourinary: Genitourinary: Denies abnormal vaginal bleeding, Denies hematuria, Denies dysuria, Denies pelvic pain and Denies vaginal discharge Musculoskeletal: Musculoskeletal: Denies back pain Neurologic: Denies numbness and Denies weakness PMFSH Past Medical History Medical History GERD (gastroesophageal reflux disease) Surgical History Surgical History No pertinent past surgical history Family History Family History Grandparent Diabetes mellitus Breast cancer Chronic obstructive pulmonary disease Pulmonary fibrosis Mother Arthritis, rheumatoid Diabetes mellitus Social History Social History Smoking status: Former smoker Tobacco type: cigarettes Second hand tobacco smoke exposure: No Smoking end date: 06/06/20 Alcohol intake: current Substance use: never Gender identity (if verbalized by the patient): Female Spiritual care concerns: No Exam Const: General: healthy appearing, no acute distress and alert Orientation/consciousness: patient oriented x3 HENMT: Head: normal to inspection Resp: Effort & Inspection: normal respiratory effort Cardio: Other: 2+ right DP GI: Other: Gravid Skin: General skin exam: normal color Wounds: no wounds Neuro: General: patient oriented x3 and moves all extremities Speech: normal speech Gait exam (Neuro): Normal gait present Extrem: Other: Mild bilateral foot and ankle edema, worse on the right. Mild right calf tenderness. Psych: Appearance: grossly normal and well kempt Mental Status: mental status grossly normal Affect: normal affect Attitude: cooperative Course Vital Signs Vital signs: Vital Signs Temperature 36.3 C L 04/23/21 12:12 Pulse Rate 99 04/23/21 12:12 Respiratory Rate 17 04/23/21 12:12 Blood Pressure 134/84 04/23/21 12:12 Pulse Oximetry 98 04/23/21 12:12 Temperature 36.3 C L 04/23/21 12:12 Pulse Rate 99 04/23/21 12:12 Respiratory Rate 17 04/23/21 12:12 Blood Pressure 134/84 04/23/21 12:12 Pulse Oximetry 98 04/23/21 12:12 MDM - Extremity Injury (Lower) Imaging Data Radiologist's impression: ITS Impressions Venous Doppler Study 04/23/21 13:39 IMPRESSION: No evidence of deep venous thrombosis of right leg Discharge Plan Discharge Clinical Impression: Right calf pain Patient Disposition: Home, Self-Care Condition: Stable Instructions: Leg Pain (ED) Prescriptions: No Action PNV cmb#95-ferrous fumarate-FA [] 28 mg iron- 800 mcg Tablet 1 tablet PO DAILY RF
[2021-04-23 14:00] VITALS: BP 131/81; PULSE 90; RESP 20; TEMP 36.6; O2SAT 96
[2021-04-23 15:08] VITALS: BP 129/87; PULSE 90; RESP 18; TEMP 36.8; O2SAT 96
== END 2021-04-23 15:08 | disposition home or self-care (01) ==
PROVIDERS: Emergency Provider Emergency Medicine; PCP Physician Assistant
DX: O26.893 Other specified pregnancy related conditions, third trimester (principal); M79.661 Pain in right lower leg; Z3A.38 38 weeks gestation of pregnancy; Z87.891 Personal history of nicotine dependence
CPT/HCPCS: 93971; 99284

== ENCOUNTER 2021-04-26 11:47 | Outpatient (CLI) | payer BC, SELFPAY ==
[2021-04-26] VITALS (11 sets, daily range): BP systolic 114–139; BP diastolic 61–105; PULSE 79–98
[2021-04-26 13:11] LABS: Basophils Percent Auto 0.2 % (0.2-1.2); Eosinophils Absolute Auto 0.1 K/mm3 (0-0.3); Eosinophils Percent Auto 0.8 % (0-4.4); Hemoglobin 11.7 g/dL (12.0-15.0); Immature Granulocyte Absolute 0.07 K/mm3 (0.00-0.031); Immature Granulocyte Percent A 0.7 % (0-0.5); Lymphocytes Absolute Auto 1.66 K/mm3 (0.9-3.2); Lymphocytes Percent Auto 16.5 % (18.3-44.2); Mean Corpuscular HGB Conc 33.4 g/dl (32-36); Mean Corpuscular Hemoglobin 27.8 pg (26-34); Mean Corpuscular Volume 83.1 fl (80-100); Mean Platelet Volume 11.1 fl (7.4-10.4); Monocytes Absolute Auto 0.7 K/mm3 (0.1-0.6); Monocytes Percent Auto 6.5 % (2.6-8.5); Neutrophils Absolute Auto 7.6 K/mm3 (1.3-6.7); Neutrophils Percent Auto 75.3 % (45.5-73.1); Platelet Count Result 209 k/mm3 (150-375); Red Blood Count 4.21 M/mm3 (4.2-5.4); Red Cell Distribution Width 14.4 % (11.5-14.5); White Blood Count 10.1 K/mm3 (4.5-10.0)
[2021-04-26 13:19] LABS: Add Urine Microscopic? YES; Appearance Urine Cloudy (Clear); Bacteria Urine Trace /hpf; Bilirubin Urine Negative (Negative); Blood Urine Negative (Negative); Color Urine Yellow (Yellow); Glucose Urine UA 1+ mg/dL (Negative); Ketones Urine Negative (Negative); Leukocyte Esterase Ur Trace LEU/UL (NEGATIVE); Nitrate Urine Negative (Negative); Protein Urine 1+ mg/dL (Negative); RBC Urine 0-2 /hpf (0-2); Specific Grav Ur 1.024 (1.001-1.035); Squamous Epithelial Cell Urine Rare /hpf (Few); Urobilinogen Urine Negative mg/dL (<2.0); WBC Urine 0-3 /hpf (0-3)
[2021-04-26 13:35] LABS: Alanine Aminotransferase 11 U/L (4-35); Albumin Level 3.3 g/dL (3.5-5.1); Alkaline Phosphatase 135 U/L (38-126); Anion Gap 5 mmol/L (8-16); Aspartate Amino Transferase 16 U/L (14-36); Bilirubin,Total 0.3 mg/dL (0.2-1.3); Blood Urea Nitrogen 9 mg/dL (7-17); Calcium 9.1 mg/dL (8.4-10.2); Carbon Dioxide 20 mmol/L (22-30); Chloride 109 mmol/L (98-107); Estimated Glomerular Filt Rate > 60; Glucose 129 mg/dL (65-110); Potassium 3.9 mmol/L (3.4-5.0); Sodium 134 mmol/L (137-145); Uric Acid 4.8 mg/dL (2.5-7.5)
[2021-04-26 14:11] LABS: Creatinine Urine 148.9 mg/dL; Total Protein Urine Random 12 mg/dL; Ur Ttl Prot Creatinine Ratio 0.08 mg/mg (0-0.20)
== END 2021-04-26 14:30 | disposition home or self-care (01) ==
LOC: ANHOBOP 11:51 → ANHOBPP 11:51
PROVIDERS: Advanced Practice Midwife; PCP Physician Assistant; Visit Provider Obstetrics & Gynecology
DX: O13.9 Gestational [pregnancy-induced] hypertension without significant proteinuria, unspecified trimester (principal); Z3A.00 Weeks of gestation of pregnancy not specified
CPT/HCPCS: 36415; 59025; 80053; 81001; 82570; 84156; 84550; 85025; 87086; 87088; 99199

== ENCOUNTER 2021-05-03 05:04 | Inpatient (IN) | payer BC, SELFPAY ==
[2021-05-03] VITALS (228 sets, daily range): BP systolic 96–193; BP diastolic 60–121; PULSE 66–140; TEMP 36.3–37.7; O2SAT 92–100; BMI 39.6
--- OUTSIDE RECORDS SUMMARY | 2021-05-03 05:11 | XMS_ITS | Encounter Summary ---
:1995 Author Care Team Providers Name Role Phone Nichol LIU Primary Care Provider [phone] Reason for Visit None recorded. Assessment and Plan 1. Uterine size for dates discre pancy ? US, obstetric, follow-up Discussion Note: None recorded.Patient educational handouts: No information available. Plan of Care Reminders Provider Appointments Ob Routine Ju Anupama 05/12/2021 MD Arnaldo 11:45AM Lab None ? ? recorded. Referral None ? ? recorded. Procedures None ? ? recorded. Surgeries None ? ? recorded. Imaging , [place] [facility], Follow-up 03/02/2021 Medications Name Start Date ? ? 28 mg iron-800 mcg tablet ? Medications Administered None recorded. Vitals None recorded. Results Lab Results None recorded. Allergies Code Code System Name Reaction Severity Onset NKDA ? ? ? Problems Name Status Onset Date Source ? Active 10/26/2020 ? Procedures Date Name Performed by ? 03/02/2021
--- OUTSIDE RECORDS SUMMARY | 2021-05-03 05:11 | XMS_ITS | Encounter Summary ---
:1995 Author Care Team Providers Name Role Phone Nichol LIU Primary Care Provider [phone] Reason for Visit None recorded. Assessment and Plan 1. Maternal obesity complicating , childbirth and the puerperium, antepartum ? US, obstetric, follow-up ? US, obstetric, biophysical profile + non-stress test Discussion Note: None recorded.Patient educational handouts: No information available. Plan of Care Reminders Provider Appointments Ob Routine Ju Anupama 05/12/2021 MD Arnaldo 11:45AM Lab None recorded. ? ? Referral None recorded. ? ? Procedures None recorded. ? ? Surgeries None recorded. ? ? Imaging US, [facility] Follow-up 04/28/2021 ? US, Obstetric, [facility] Biophysical Profile + 04/28/2021 Non-stress Test Medications Name Start Date ? ? 28 mg iron-800 mcg tablet ? Medications Administered None recorded. Vitals None recorded. Results Lab Results None recorded. Allergies Code Code System Name Reaction Severity Onset
--- OUTSIDE RECORDS SUMMARY | 2021-05-03 05:11 | XMS_ITS | Encounter Summary ---
:1995 Author Care Team Providers Name Role Phone Nichol LIU Primary Care Provider [phone] Reason for Visit OB visit OB [id number] EDC 05/08/2021 LMP 07/11/2020 Assessment and Plan Assessment Note Patient is __28_weeks . Dis cussed plan. 1. Routine care Discussion Note: None recorded.Patient educational handouts: No information available. Plan of Care Reminders Provider Appointments Ob Routine Ju Anupama 05/12/2021 MD Arnaldo 11:45AM Lab None ? ? recorded. Referral None ? ? recorded. Procedures None ? ? recorded. Surgeries None ? ? recorded. Imaging None ? ? recorded. Medications Name Start Date ? ? 28 mg iron-800 mcg tablet ? Medications Administered None recorded. Vitals Height Weight BMI Blood Pressure 5 ft 4 in 225 lbs 38.6 kg/m2 127/79 mm[Hg] Results Lab Results None recorded. Allergies Code Code System Name Reaction Severity Onset NKDA ? ? ? Problems Name Status Onset Date Source ? Active
--- OUTSIDE RECORDS SUMMARY | 2021-05-03 05:11 | XMS_ITS | Encounter Summary ---
:1995 Author Care Team Providers Name Role Phone Nichol LIU Primary Care Provider [phone] Reason for Visit None recorded. Assessment and Plan 1. Maternal obesity complicating , childbirth and the puerperium, antepartum ? non-stress test Discussion Note: None recorded.Patient educational handouts: No information available. Plan of Care Reminders Provider Appointments Ob Routine Ju Anupama 05/12/2021 MD Arnaldo 11:45AM Lab None ? ? recorded. Referral None ? ? recorded. Procedures None ? ? recorded. Surgeries None ? ? recorded. Imaging Non-stress [place] Test 04/21/2021 Medications Name Start Date ? ? 28 mg iron-800 mcg tablet ? Medications Administered None recorded. Vitals None recorded. Results Lab Results None recorded. Allergies Code Code System Name Reaction Severity Onset NKDA ? ? ? Problems Name Status Onset Date Source ? Active 10/26/2020 ? Procedures Date Name Performed by ?
--- OUTSIDE RECORDS SUMMARY | 2021-05-03 05:11 | XMS_ITS | Encounter Summary ---
:1995 Author Care Team Providers Name Role Phone Nichol LIU Primary Care Provider [phone] Reason for Visit OB visit OB [id number] EDC 05/08/2021 LMP 07/11/2020 Assessment and Plan Assessment Note Patient is 32___weeks . Dis cussed plan. 1. Routine care [...] BMI Blood Pressure 5 ft 4 in 231 lbs 39.7 kg/m2 123/76 mm[Hg] Results Lab Results None recorded. Allergies Code Code System Name Reaction Severity Onset NKDA ? ? ? Problems Name Status Onset Date Source ? Active
--- OUTSIDE RECORDS SUMMARY | 2021-05-03 05:11 | XMS_ITS | Encounter Summary ---
:1995 Author Care Team Providers Name Role Phone Nichol LIU Primary Care Provider [phone] Reason for Visit None recorded. Assessment and Plan 1. Maternal obesity complicating , childbirth and the puerperium, antepartum ? US, obstetric, biophysical profile + non-stress test Discussion Note: None recorded.Patient educational handouts: No information available. Plan of Care Reminders Provider Appointments Ob Routine Ju Anupama 05/12/2021 MD Arnaldo 11:45AM Lab None recorded. ? ? Referral None recorded. ? ? Procedures None recorded. ? ? Surgeries None recorded. ? ? Imaging US, Obstetric, [facility] Biophysical Profile + 04/21/2021 Non-stress Test Medications Name Start Date ? ? 28 mg iron-800 mcg tablet ? Medications Administered None recorded. Vitals None recorded. Results Lab Results None recorded. Allergies Code Code System Name Reaction Severity Onset NKDA ? ? ? Problems Name Status Onset Date Source ? Active
--- OUTSIDE RECORDS SUMMARY | 2021-05-03 05:11 | XMS_ITS | Encounter Summary ---
:1995 Author Care Team Providers Name Role Phone Nichol LIU Primary Care Provider [phone] Reason for Visit OB visit OB [id number] EDC 05/08/2021 LMP 07/11/2020 Assessment and Plan Assessment Note Patient is __30_weeks . Dis cussed plan. 1. Routine care [...] BMI Blood Pressure 5 ft 4 in 229 lbs 39.3 kg/m2 130/77 mm[Hg] Results Lab Results None recorded. Allergies Code Code System Name Reaction Severity Onset NKDA ? ? ? Problems Name Status Onset Date Source ? Active
--- OUTSIDE RECORDS SUMMARY | 2021-05-03 05:11 | XMS_ITS | Encounter Summary ---
:1995 Author Care Team Providers Name Role Phone Nichol LIU Primary Care Provider [phone] Reason for Visit None recorded. Assessment and [...] Surgeries None ? ? recorded. Imaging , [place] [facility], Follow-up 03/28/2021 Medications Name Start Date ? ? 28 mg iron-800 mcg tablet ? Medications Administered None recorded. Vitals None recorded. Results Lab Results None recorded. Allergies Code Code System Name Reaction Severity Onset NKDA ? ? ? Problems Name Status Onset Date Source ? Active 10/26/2020 ? Procedures Date Name Performed by ? 03/02/2021
--- OUTSIDE RECORDS SUMMARY | 2021-05-03 05:11 | XMS_ITS | Encounter Summary ---
:1995 Author Care Team Providers Name Role Phone Nichol LIU Primary Care Provider [phone] Reason for Visit OB visit OB [id number] EDC 05/08/2021 LMP 07/11/2020 Assessment and Plan Assessment Note Patient is _38__weeks . Dis cussed plan. 1. Routine care [...] BMI Blood Pressure 5 ft 4 in 243 lbs 41.7 kg/m2 129/88 mm[Hg] Results Lab Results None recorded. Allergies Code Code System Name Reaction Severity Onset NKDA ? ? ? Problems Name Status Onset Date Source ? Active
--- OUTSIDE RECORDS SUMMARY | 2021-05-03 05:11 | XMS_ITS | Encounter Summary ---
:1995 Author Care Team Providers Name Role Phone Nichol LIU Primary Care Provider [phone] Reason for Visit None recorded. Assessment and [...] ? recorded. Imaging Non-stress [place] Test 04/28/2021 Medications Name Start Date ? ? 28 mg iron-800 mcg tablet ? Medications Administered None recorded. Vitals None recorded. Results Lab Results None recorded. Allergies Code Code System Name Reaction Severity Onset NKDA ? ? ? Problems Name Status Onset Date Source ? Active 10/26/2020 ? Procedures Date Name Performed by ?
--- OUTSIDE RECORDS SUMMARY | 2021-05-03 05:11 | XMS_ITS | Encounter Summary ---
:1995 Author Care Team Providers Name Role Phone Nichol LIU Primary Care Provider [phone] Reason for Visit OB visit OB [id number] EDC 05/08/2021 LMP 07/11/2020 Assessment and Plan Assessment Note Patient is _34__weeks . Dis cussed plan. 1. Routine care [...] BMI Blood Pressure 5 ft 4 in 234 lbs 40.2 kg/m2 118/80 mm[Hg] Results Lab Results None recorded. Allergies Code Code System Name Reaction Severity Onset NKDA ? ? ? Problems Name Status Onset Date Source ? Active
--- OUTSIDE RECORDS SUMMARY | 2021-05-03 05:11 | XMS_ITS | Encounter Summary ---
:1995 Author Care Team Providers Name Role Phone Nichol LIU Primary Care Provider [phone] Reason for Visit OB visit OB [id number] EDC 05/08/2021 LMP 07/11/2020 Assessment and Plan Assessment Note Patient is __37_weeks . Dis cussed plan. 1. Routine care [...] ft 4 in 243 lbs 41.7 kg/m2 130/76 mm[Hg] Results Lab Results None recorded. Allergies Code Code System Name Reaction Severity Onset NKDA ? ? ? Problems Name Status Onset Date Source ? Active
--- OUTSIDE RECORDS SUMMARY | 2021-05-03 05:11 | XMS_ITS ---
:1995 Author Care Team Providers Name Role Phone MANASA LIU Primary Care Provider [phone] Allergies Code Code System Name Reaction Severity Status Onset NKDA ? Medications Name Status Start Date Stop Date ? ? amoxicillin 875 mg tablet Completed ? 2020 [id number] 50 Completed ? 12/22/2020 mg-325 mg-40 mg tablet clobetasol 0.05 % topical cream Completed ? 05/28/2020 doxycycline monohydrate 100 mg capsule Completed ? 09/28/2020 Fioricet 50 mg-300 mg-40 mg capsule Completed ? 11/22/2020 Take 1 capsule every 4 hours by oral route. hydrocodone 5 mg-acetaminophen 325 mg tablet Completed ? 12/22/2020 Take 1 tablet every 6 hours by oral route. Keflex 500 mg capsule Completed ? 01/29/2020 Take 1 capsule every 12 hours by oral route for 7 days. Loestrin Fe 1/20 (28-Day) 1 mg-20 mcg (21)/75 mg (7) tablet Comp leted ? 09/28/2020 Take 1 tablet every day by oral route. meclizine 25 mg tablet Completed ? Completed ? 09/28/2020 28 mg iron-800 mcg tablet Active ? Not available spironolactone 100 mg tablet Completed ? Problems Name Status Onset Date Source ? Gestation Less than 9 Weeks Unknown 11/02/2019 Hist ory Detection Examination Unknown 11/02/2019 History Secondary Amenorrhea Unknown 11/02/[address] Concept Unknown 11/02/2019 History Unknown 12/14/2019 ? Pre
--- OUTSIDE RECORDS SUMMARY | 2021-05-03 05:11 | XMS_ITS | Encounter Summary ---
:1995 Author Care Team Providers Name Role Phone Nichol LIU Primary Care Provider [phone] Reason for Visit OB visit OB [id number] EDC 05/08/2021 LMP 07/11/2020 Assessment and Plan Assessment Note Patient is _36__weeks . Dis cussed plan. 1. Routine care [...] BMI Blood Pressure 5 ft 4 in 237 lbs 40.7 kg/m2 133/84 mm[Hg] Results Lab Results None recorded. Allergies Code Code System Name Reaction Severity Onset NKDA ? ? ? Problems Name Status Onset Date Source ? Active
--- NOTE | 2021-05-03 05:27 | LDADM ---
This patient, Piedad Sosa, was admitted to Labor/Delivery/Recovery 103 on 05/03/21 at 05:04. Plans for labor, pain management and were discussed with patient. Patient/family oriented to hospital policies and general routines including ID bracelet, bed and alarms, visiting hours, pain management, procedures, bathroom and other care routines, personal items, smoking policy, room service/diet and guest tray routines, infant security routines, and visiting hours. Patient/Family are encouraged to report perceived risks to care and to ask questions if they do not understand what they are told or what they should do. See OBIX for further documentation.
[2021-05-03 05:56] LABS: Basophils Percent Auto 0.1 % (0.2-1.2); Eosinophils Absolute Auto 0.1 K/mm3 (0-0.3); Eosinophils Percent Auto 0.6 % (0-4.4); Hematocrit 35.7 % (37.0-47.0); Hemoglobin 11.8 g/dL (12.0-15.0); Immature Granulocyte Percent A 0.8 % (0-0.5); Lymphocytes Absolute Auto 2.18 K/mm3 (0.9-3.2); Lymphocytes Percent Auto 18.1 % (18.3-44.2); Mean Corpuscular HGB Conc 33.1 g/dl (32-36); Mean Corpuscular Hemoglobin 27.7 pg (26-34); Mean Corpuscular Volume 83.8 fl (80-100); Mean Platelet Volume 10.8 fl (7.4-10.4); Monocytes Absolute Auto 0.9 K/mm3 (0.1-0.6); Monocytes Percent Auto 7.1 % (2.6-8.5); Neutrophils Absolute Auto 8.8 K/mm3 (1.3-6.7); Neutrophils Percent Auto 73.3 % (45.5-73.1); Platelet Count Result 214 k/mm3 (150-375); Red Blood Count 4.26 M/mm3 (4.2-5.4); Red Cell Distribution Width 14.9 % (11.5-14.5)
[2021-05-03] MEDS: LACTATED RINGERS 1,000 ML 125 ML IV CONT ×2 (05:57→19:17)
[2021-05-03] MEDS: OXYTOCIN 30 UNITS/NS 500 ML 30 UNITS/500 ML BAG IV CONT (05:57)
--- NOTE | 2021-05-03 07:35 | WPDOBADMIT ---
Obstetrics - Admit Note Admission Note: record reviewed. No pertinent additions to the history and/or any subsequent changes in the physical findings that are not consistent with the expected course of the were found. IOL SVE 1-2/60/-2 AROM moderate amount of clear odorless fluid Additions to the history and/or subsequent changes in the physical findings follow. None.
[2021-05-03 10:01] LABS: Rapid Plasma Reagin Non-Reactive (NonReactive)
--- NOTE | 2021-05-03 10:29 | WPDANESEPPF ---
Anes - Initial Pre Proc Eval Procedure: labor epidural Date/Time: 05/03/21 10:29 Surgeon: Sarah Cuellar MD Pre Op Diagnosis: labor pain Pre Op Diagnosis: IOL Patient Data Age: 25 Gender: F Height: 1.63 m Weight: 104.75 kg Last Vital Signs Temp 36.3 C L 05/03/21 05:45 Pulse 78 05/03/21 10:16 BP 147/86 H 05/03/21 10:16 Allergies Allergy/AdvReac Type Severity Reaction Status Date / Time bee venom protein (honey bee) Allergy Numbness Verified 04/23/21 12:12 [bees] Home Medications Medication Instructions Recorded Confirmed Type PNV cmb#95-ferrous fumarate-FA 1 tablet PO DAILY 06/03/20 04/24/21 History [] Laboratory Tests 05/03/21 05/03/21 05/03/21 05:42 05:42 05:42 WBC 12.0 K/mm3 H K/mm3 (4.5-10.0) RBC 4.26 M/mm3 M/mm3 (4.2-5.4) Hgb 11.8 g/dL L g/dL (12.0-15.0) Hct 35.7 % L % (37.0-47.0) MCV 83.8 fl fl (80-100) MCH 27.7 pg pg (26-34) MCHC 33.1 g/dl g/dl (32-36) RDW 14.9 % H % (11.5-14.5) Plt Count 214 k/mm3 k/mm3 (150-375) MPV 10.8 fl H fl (7.4-10.4) Immature Gran % (Auto) 0.8 % H % (0-0.5) Neut % (Auto) 73.3 % H % (45.5-73.1) Lymph % (Auto) 18.1 % L % (18.3-44.2) [place] % (Auto) 7.1 % % (2.6-8.5) Eos % (Auto) 0.6 % % (0-4.4) Baso % (Auto) 0.1 % L % (0.2-1.2) Lymph # (Auto) 2.18 K/mm3 K/mm3 (0.9-3.2) [place] # (Auto) 0.9 K/mm3 H K/mm3 (0.1-0.6) Eos # (Auto) 0.1 K/mm3 K/mm3 (0-0.3) Baso # (Auto) 0.0 K/mm3 K/mm3 (0.0-0.1) Abs Immat Gran (auto) 0.10 K/mm3 H K/mm3 (0.00-0.031) Absolute Neuts (auto) 8.8 K/mm3 H K/mm3 (1.3-6.7) Absolute Nucleated RBC 0.0 K/mm3 K/mm3 (0.0-0.012) Nucleated RBC % 0.0 % % (0.0-0.2) RPR Non-reactive (NonReactive) Blood Type O Positive Antibody Screen Negative Patient hx anesthesia problems: none Family hx anesthesia problems: none PMFSH Past Medical History Medical History GERD (gastroesophageal reflux disease) Surgical History Surgical History No pertinent past surgical history Family History Family History Grandparent Diabetes mellitus Breast cancer Chronic obstructive pulmonary disease Pulmonary fibrosis Mother Arthritis, rheumatoid Diabetes mellitus Social History Social History Years smoked: 6.5 Smoking status: Former smoker Tobacco type: cigarettes Second hand tobacco smoke exposure: Yes Smoking end date: 06/06/20 Alcohol intake: current Substance use: never Gender identity (if verbalized by the patient): Female Spiritual care concerns: No Anes - Eval Final PreProcedure Day of Procedure 05/03/21 10:29 Patient weight: obese ASA classification: II Anesthesia type and monitoring: regional epidural and standard monitoring Informed Consent: The patient's anesthetic plan and its attendant risks and benefits were discussed with the patient/family/POA. Questions were solicited and answers provided to the satisfaction of the patient/family/POA.
[2021-05-03] MEDS: ONDANSETRON INJ 4 MG/2 ML VIAL IV PUSH (19:55)
--- NOTE | 2021-05-03 22:05 | PM.OBPRVD ---
OB - Delivery Note Procedure Delivery date: 05/03/21 Procedure: vaginal delivery Intrapartal events: None Induction method: AROM and per pitocin protocol Delivery monitor: external FHT, external uterine and internal uterine Route of delivery: Laceration Description: None Specimen: No Quantitative Blood Loss (ml): 60 Anesthesia type: Epidural Disposition: floor [place] Baby Date of : 05/03/21 Time of : 09:45 Weeks of gestation at delivery: 39 Infant gender: Male Weight (pounds): 7 Weight (ounces): 4 presentation: vertex position: Left Occiput Anterior Placenta delivery description: Spontaneous cord vessel description: 3 Vessels, Nuchal Cord, Tight (clamped and cut on perineum) and Clamped/Cut score one minute: 8 score five minutes: 8 Narrative: mother and baby in stable condition
[2021-05-03] MEDS: OXYTOCIN 30 UNITS/NS 500 ML 30 UNITS/500 ML BAG 125 UNITS IV CONT (22:29)
[2021-05-03] MEDS: IBUPROFEN 600 MG TABLET PO (23:06)
[2021-05-04] VITALS (7 sets, daily range): BP systolic 111–137; BP diastolic 66–84; PULSE 74–104; RESP 16–18; TEMP 36.2–37.2; O2SAT 97–100
--- NOTE | 2021-05-04 00:26 | OBPPTRN ---
Patient transferred to post room #281 via wheelchair. Support person present. Oriented to unit, room, information board, rooming in, admission packet and security measures. Patient verbalizes understanding.
[2021-05-04] MEDS: ACETAMINOPHEN 325 MG TABLET 650 MG PO (04:11)
[2021-05-04 05:28] LABS: Hematocrit 36.8 % (37.0-47.0)
[2021-05-04] MEDS: IBUPROFEN 600 MG TABLET PO ×3 (07:01→23:26)
[2021-05-04] MEDS: DOCUSATE SODIUM 100 MG CAPSULE PO ×2 (07:01→15:15)
--- NOTE | 2021-05-04 07:38 | P.PNOB_ITS ---
OB - PN: Subj Subjective Date/time seen: 05/04/21 07:38 Patient comments: no complaints baby status: doing well OB - PN: Obj Data Labs CBC & Chem 7: 05/04/21 04:09 Labs: Laboratory Results - last 24 hr 05/03/21 05/03/21 05/04/21 05:42 05:42 04:09 Hgb 12.0 Hct 36.8 L RPR Non-reactive Blood Type O Positive Antibody Screen Negative OB - PN A/P Plan day: 1 Plan: routine care Time Spent With Patient Time: Total time spent is greater than 50% in coordination of care (as documented) at patient's floor/unit and/or counseling patient: Time with patient: less than 15 minutes Review of Systems Review of Systems: All systems reviewed & are unremarkable except as noted in HPI and below Exam Narrative: Fundus firm and vaginal flow controlled. No lower ext redness, warm th, or edema. Negative homans. Const: General: comfortable Chest: Breast/axilla inspection: normal inspection of the breasts Resp: Effort & Inspection: normal respiratory effort Cardio: Rate: regular rate GI: GI Palp: Yes Soft to palpation Psych: Appearance: grossly normal Affect: normal affect Attitude: cooperative Thought content: Yes Normal thought content present Judgement: Good judgement present (Psych)
--- NOTE | 2021-05-04 09:23 | WPDANLDPN2 ---
Anes-Prog Note L&D Date/Time: 05/04/21 09:23 Comfortable throughout: labor and delivery Neuraxial method: epidural Epidural/Spinal procedure site: clean & non-tender Neuro status: Neuro function grossly intact. Cardiovascular status: normal Respiratory status: normal Airway patency: baseline Mental status: baseline Post-Op hydration status: normal Vital Signs: Last Vital Signs Temp 36.8 C 05/04/21 04:00 Pulse 79 05/04/21 04:00 Resp 16 05/04/21 04:00 BP 111/66 05/04/21 04:00 Pulse Ox 97 05/04/21 04:00 Pain score (VAS): 0 I/O: Intake & Output 05/03/21 05/04/21 05/04/21 23:59 07:59 15:59 Output Total 70 40 Balance -70 -40 Post-procedural complaints: none Patient feedback: Patient satisfied with anesthetic care.
[2021-05-04] MEDS: WITCH HAZEL 40 PADS 1 PAD TOPICAL (15:14)
[2021-05-04] MEDS: BENZOCAINE 20% AER SPR (*SP) 56 GM CAN 1 SPRAY TOPICAL (15:14)
--- NOTE | 2021-05-05 07:23 | PM.OBPNVD ---
OB - PN: Subj Subjective Date/time seen: 05/05/21 07:23 Patient comments: no complaints baby status: doing well OB - PN: Obj Data Labs CBC & Chem 7: 05/04/21 04:09 OB - PN A/P Plan day: 2 Plan: routine care and discharge home Time Spent With Patient Time: Total time spent is greater than 50% in coordination of care (as documented) at patient's floor/unit and/or counseling patient: Review of Systems Review of Systems: All systems reviewed & are unremarkable except as noted in HPI and below Exam Const: General: cooperative Psych: Affect: normal affect Attitude: cooperative Thought process: Normal thought process present Thought content: Yes Normal thought content present Insight: Good insight present (Psych)
--- NOTE | 2021-05-05 07:25 | P.DS_ITS ---
DS: Admitting Diagnosis Admitting Diagnosis IOL OB - DS: Summary OB Procedures : None OB Procedures Intrapartum: Spontaneous Vag Delivery OB Procedures: : None Time Spent with Patient Time attestation: Total time spent providing and/or coordinating discharge services: Discharge Plan Discharge Attending physician on discharge: Sarah Cuellar Discharging Clinician: Roseanna Rausch Patient Disposition: Home, Self-Care Activity: pelvic rest Diet: regular Patient Instructions: Antibiotic Form Stand Alone Forms: General Discharge Information Follow-up/Referrals: Roseanna Rausch CNM [Certified Nurse Multi Operation Machine Operator] - 4 Weeks Discharge Medications: New ibuprofen 600 mg Tablet 600 mg PO Q6H PRN (Reason: Cramping) Qty: 30 RF: 0 Continued PNV cmb#95-ferrous fumarate-FA [] 28 mg iron- 800 mcg Tablet 1 tablet PO DAILY RF: 0 Date of admission: 05/03/21 05:04 Primary Care Provider: Leti,Melvin Admitting Provider: Sarah Cuellar Attending physician on admission: Sarah Cuellar Condition: Stable
[2021-05-05 08:00] VITALS: BP 132/64; PULSE 64; RESP 18; TEMP 36.3
--- NOTE | 2021-05-05 08:00 | PC.NURSE ---
Patient was given the opportunity to view the discharge video Mother & Baby Care, The First Two Weeks and to ask questions. Patient declined viewing the video and has been given the mother/baby guide for home reference.
[2021-05-05] MEDS: DOCUSATE SODIUM 100 MG CAPSULE PO (08:44)
[2021-05-05] MEDS: WITCH HAZEL 40 PADS 1 PAD TOPICAL (08:44)
[2021-05-05] MEDS: BENZOCAINE 20% AER SPR (*SP) 56 GM CAN 1 SPRAY TOPICAL (08:44)
[2021-05-05] MEDS: IBUPROFEN 600 MG TABLET PO (08:44)
[2021-05-05] MEDS: ACETAMINOPHEN 325 MG TABLET 650 MG PO (08:45)
--- NOTE | 2021-05-05 10:00 | PC.NURSE ---
Self care and infant care discharge instructions given including follow up visit date and time. Pt. verbalized understanding. No questions or concerns voiced. Very pleasant and anxious for discharge.
[2021-05-05] MEDS: CYCLOBENZAPRINE HCL 10 MG TABLET PO (12:00)
[2021-05-08 09:22] VITALS: BP 138/81; PULSE 79; RESP 20; TEMP 37.1; O2SAT 100
== END 2021-05-05 12:20 | disposition home or self-care (01) | DRG 807 ==
LOC: ANHLDR 05:08 → ANHOB2 05-04 00:59
PROVIDERS: Advanced Practice Midwife; Admitting Provider Obstetrics & Gynecology; PCP Physician Assistant; Visit Provider Obstetrics & Gynecology
DX: O69.1XX0 Labor and delivery complicated by cord around neck, with compression, not applicable or unspecified (principal); Z37.0 Single live birth; O76 Abnormality in fetal heart rate and rhythm complicating labor and delivery; Z3A.39 39 weeks gestation of pregnancy
CPT/HCPCS: 36415; 85014; 85018; 85025; 86592; 86850; 86900; 86901; A9270; J2405; J2590; J2795; J7120

== ENCOUNTER 2022-02-04 23:08 | Emergency (ER) | payer BC, SELFPAY ==
[2022-02-04 23:18] VITALS: BP 129/68; PULSE 78; RESP 16; TEMP 36.6; O2SAT 100
--- NOTE | 2022-02-04 23:25 | PC.NURSE ---
No answer when pt called for ED room assignment.
--- NOTE | 2022-02-04 23:37 | PC.NURSE ---
No longer present in wr when office technology instructor attempted to room pt.
== END 2022-02-04 23:34 | disposition left against medical advice (07) ==
LOC: ANHED 23:31
PROVIDERS: PCP Physician Assistant
DX: R51.9 Headache, unspecified (principal)
CPT/HCPCS: 99199

== ENCOUNTER 2023-04-01 09:46 | Emergency (ER) | payer BC, SELFPAY ==
--- NOTE | 2023-04-01 10:01 | ED.URI ---
HPI - URI/Sore Throat General Chief Complaint: Upper Respiratory Infection Stated Complaint: Sore throat; fever Time Seen by Provider: 04/01/23 10:01 Source: patient, RN notes reviewed and old records reviewed Mode of arrival: ambulatory Limitations: no limitations History of Present Illness HPI Narrative: 27 year old female who presents to [facility] care with complaints of sore throat since yesterday with fever of 101F this morning. Patient reports that she was suppose to get tonsils removed as child but grandmother passed so didn't get them out. Patient reports that she has had strep 3 or 4 times in the past year with tonsils very enlarged and uvula also swollen. Patient reports painful swallowing but able to swallow and reports no shortness of breath.Patient reports no known sick contacts. MD elicited complaint: fever and sore throat Pertinent past history: other (previous strep) Onset (ago): day(s) (since yesterday evening around 1800) Consistency: constant Pain scale (0-10): 7 Able to tolerate fluids by mouth: Yes Exacerbating factors: swallowing Treatments prior to arrival: none Related Data Allergies Allergy/AdvReac Type Severity Reaction Status Date / Time bee venom protein (honey bee) Allergy Numbness Verified 04/01/23 09:55 [bees] Review of Systems Review of Systems: CONSTITUTIONAL: Reports malaise, chills, sweats, and fever. EYES: Denies visual changes, redness, or discharge. ENT: Reports no rhinorrhea, congestion, sinus pain,no otalgia positive for sore throat. CARDIOVASCULAR: Denies chest pain, palpitations, or edema. RESPIRATORY: Reports no cough.? Denies dyspnea. GASTROINTESTINAL: Denies abdominal pain, nausea, vomiting, diarrhea SKIN: Denies rash or itching. MUSCULOSKELETAL: Denies myalgia. NEUROLOGIC: Denies headache. All systems reviewed & are unremarkable except as noted in HPI and below PMFSH Past Medical History Medical History GERD (gastroesophageal reflux disease) Strep pharyngitis Surgical History Surgical History No pertinent past surgical history Family History Family History Grandparent Diabetes mellitus Breast cancer Chronic obstructive pulmonary disease Pulmonary fibrosis Mother Arthritis, rheumatoid Diabetes mellitus Social History Social History Years smoked: 6.5 Smoking status: Former smoker Tobacco type: cigarettes Second hand tobacco smoke exposure: Yes Smoking end date: 06/06/20 Alcohol intake: current Substance use: never Gender identity (if verbalized by the patient): Female Spiritual care concerns: No Comments At time of signature, agree with nursing past medical, surgical, social and family history. There is no relevant family history pertinent to the presenting complaint Exam Narrative: GENERAL: Well-appearing, well-nourished, and in no acute distress. HEAD: Normocephalic EYES: PERRLA, conjunctivae clear ENT: Nares clear, turbinates edematous and erythematous, clear discharge. Mucous membranes moist. TM pearly suarez with dull light reflex bilaterally; no tragal tenderness. Oropharynx erythematous without lesions. Tonsils red enlarged and without exudate, no drooling, no hoarseness, no trismus, uvula red and swollen. NECK: Supple. lymphadenopathy CHEST: Clear to auscultation, breath sounds equal. No wheezing, rhonchi, rales, or stridor. No respiratory distress, speaks in full sentences.SAO2 100% on room air, no cough or any tachypnea. HEART: Regular rate and rhythm. No murmur heard. SKIN: Warm, dry, no rash. NEURO: Alert and oriented x3. PSYCH: Normal mood and affect Course Course Emergency Course: Patient is aware of diagnosis, understands and agrees to treatment plan.? Anticipat
[2023-04-01 10:09] VITALS: BP 109/57; PULSE 100; RESP 16; TEMP 37.2; O2SAT 100
== END 2023-04-01 10:20 | disposition home or self-care (01) ==
PROVIDERS: Emergency Provider Registered Nurse; PCP Physician Assistant
DX: J02.0 Streptococcal pharyngitis (principal); Z87.891 Personal history of nicotine dependence; K21.9 Gastro-esophageal reflux disease without esophagitis
CPT/HCPCS: 87880; 99213; G0463

== ENCOUNTER 2023-05-31 09:10 | Emergency (ER) | payer BC, SELFPAY ==
[2023-05-31 09:21] VITALS: BP 118/67; PULSE 91; RESP 16; TEMP 37.3; O2SAT 99
--- NOTE | 2023-05-31 09:37 | ED.URI ---
HPI - URI/Sore Throat General Chief Complaint: Upper Respiratory Infection Stated Complaint: Congestion,Bodyache,Cough Time Seen by Provider: 05/31/23 09:28 Source: patient and RN notes reviewed Mode of arrival: ambulatory Limitations: no limitations History of Present Illness HPI Narrative: 27-year-old female presents with concern for 3 week history of nasal congestion, head congestion, headache. Reports sore throat started today. Reports intermittent fevers. She reports taking cold medicine without relief. MD elicited complaint: fever, rhinorrhea and nasal congestion Related Data Allergies Allergy/AdvReac Type Severity Reaction Status Date / Time bee venom protein (honey bee) Allergy Numbness Verified 05/31/23 09:15 [bees] Review of Systems Review of Systems: CONSTITUTIONAL: Report fever. EYES: Denies visual changes, redness, or discharge. ENT: Reports rhinorrhea, congestion, sinus pain, and sore throat. CARDIOVASCULAR: Denies chest pain, palpitations, or edema. RESPIRATORY: Denies cough. Denies dyspnea. GASTROINTESTINAL: Denies abdominal pain, nausea, vomiting, diarrhea SKIN: Denies rash or itching. MUSCULOSKELETAL: Denies myalgia. NEUROLOGIC: Reports headache. All systems reviewed & are unremarkable except as noted in HPI and below PMFSH Past Medical History Medical History GERD (gastroesophageal reflux disease) Strep pharyngitis Surgical History Surgical History No pertinent past surgical history Family History Family History Grandparent Diabetes mellitus Breast cancer Chronic obstructive pulmonary disease Pulmonary fibrosis Mother Arthritis, rheumatoid Diabetes mellitus Social History Social History Years smoked: 6.5 Smoking status: Former smoker Tobacco type: cigarettes Second hand tobacco smoke exposure: Yes Smoking end date: 06/06/20 Alcohol intake: current Substance use: never Gender identity (if verbalized by the patient): Female Spiritual care concerns: No Comments At time of signature, agree with nursing past medical, surgical, social and family history. There is no relevant family history pertinent to the presenting complaint Exam Narrative: GENERAL: Well-appearing, well-nourished, and in no acute distress. HEAD: Normocephalic EYES: PERRLA, conjunctivae clear ENT: Nares clear, turbinates edematous and erythematous. Mucous membranes moist. TM pearly suarez with dull light reflex bilaterally; no tragal tenderness. Oropharynx erythematous without lesions. Tonsils enlarged and without exudate, no drooling, no hoarseness, no trismus, uvula midline. NECK: Supple. No lymphadenopathy CHEST: Clear to auscultation, breath sounds equal. No wheezing, rhonchi, rales, or stridor. No respiratory distress, speaks in full sentences. HEART: Regular rate and rhythm. No murmur heard. SKIN: Warm, dry, no rash. NEURO: Alert and oriented x3. PSYCH: Normal mood and affect Course Course Emergency Course: Patient is aware of diagnosis, understands and agrees to treatment plan. Anticipatory guidance given. Patient agrees to follow-up as directed and is aware of reasons to seek care at the emergency department. Portions of this record may have been created with voice recognition software Level of Care: Express Care Visit Vital Signs Vital signs: Vital Signs Temperature 99.1 F 05/31/23 09:21 Pulse Rate 91 05/31/23 09:21 Respiratory Rate 16 05/31/23 09:21 Blood Pressure 118/67 05/31/23 09:21 Pulse Oximetry 99 05/31/23 09:21 Temperature 99.1 F 05/31/23 09:21 Pulse Rate 91 05/31/23 09:21 Respiratory Rate 16 05/31/23 09:21 Blood Pressure 118/67 05/31/23 09:21 Pulse Oximetry 99 05/31/23 09:21 Reviewed. MDM -
== END 2023-05-31 09:40 | disposition home or self-care (01) ==
PROVIDERS: Emergency Provider Nurse Practitioner; PCP Physician Assistant
DX: J01.90 Acute sinusitis, unspecified (principal); B96.89 Other specified bacterial agents as the cause of diseases classified elsewhere; Z87.891 Personal history of nicotine dependence
CPT/HCPCS: 87081; 87880; 99213; G0463

== ENCOUNTER 2024-02-20 10:16 | Emergency (ER) | payer BC, SELFPAY ==
--- NOTE | 2024-02-20 10:28 | ED.URI ---
HPI - URI/Sore Throat General Chief Complaint: Upper Respiratory Infection Stated Complaint: sore throat Time Seen by Provider: 02/20/24 10:28 Source: patient, RN notes reviewed and old records reviewed Mode of arrival: ambulatory Limitations: no limitations History of Present Illness HPI Narrative: 28-year-old female to [facility] complaint sore upon waking this morning patient endorses history strep issues; states last was toward the end of last year. Patient endorses taking 400 mg ibuprofen and 30 this morning to help with pain and swelling. Patient denies ear pain, fever, difficulty swallowing, shortness of allergies to medications, prescription medications. Patient able to tolerate fluids by mouth. Respirations even nonlabored. Patient in no acute distress. Related Data Allergies Allergy/AdvReac Type Severity Reaction Status Date / Time bee venom protein (honey bee) Allergy Numbness Verified 02/20/24 10:27 [bees] Review of Systems Review of Systems: All systems reviewed & are unremarkable except as noted in HPI and below Constitutional: Constitutional: Reports no additional constitutional complaints Eyes: Eyes: Reports no additional eye complaints ENT: Reports as per HPI and Reports sore throat Cardiovascular: Cardiovascular: Reports no additional cardiovascular complaints, Denies chest pain and Denies dyspnea Respiratory: Respiratory: Reports no additional respiratory complaints, Denies cough and Denies dyspnea Musculoskeletal: Musculoskeletal: Reports no additional musculoskeletal complaints Neurologic: Reports system reviewed and no additional complaints, except as documented Psychiatric: Psychiatric: Reports no additional psychiatric complaints PMFSH Past Medical History Medical History GERD (gastroesophageal reflux disease) Strep pharyngitis Surgical History Surgical History No pertinent past surgical history Family History Family History Grandparent Diabetes mellitus Breast cancer Chronic obstructive pulmonary disease Pulmonary fibrosis Mother Arthritis, rheumatoid Diabetes mellitus Social History Social History Years smoked: 6.5 Smoking status: Former smoker Tobacco type: cigarettes Second hand tobacco smoke exposure: Yes Smoking end date: 06/06/20 Alcohol intake: current Substance use: never Gender identity (if verbalized by the patient): Female Spiritual care concerns: No Comments At the time of my signature, I reviewed and agree with the nursing past medical, surgical, social, and family history. There is no relevant family history pertinent to the patient complaint. Exam Const: General: cooperative, no acute distress, alert, ill appearing acutely, tired appearing, uncomfortable and well nourished Nutritional Appearance: well nourished Orientation/consciousness: patient oriented x3 Limitations: no limitations HENMT: Head: normal to inspection Ears: external ears normal Face/Nose/Sinus: Normal external nose present, Normal nares present, normal facial exam, No erythema and No edema Face and sinus: normal facial exam, no erythema and no edema Mouth: Yes Normal oral and palatal mucosa present (petechiae on soft palate ) Throat: uvula midline, no peritonsillar masses and posterior oropharynx abnormal erythema Eyes: General: appearance normal, both eyes and all related structures Neck: Neck: normal visual inspection, full ROM and no meningeal signs Lymphatic: no lymphadenopathy noted and no lymphedema noted Chest: Chest palpation & inspection: normal inspection of the chest Resp: Effort & Inspection: normal respiratory effort and able to speak in complete sentences Auscultation: clear to auscultation bilaterally
[2024-02-20 10:31] VITALS: BP 129/66; PULSE 80; RESP 16; TEMP 36.9; O2SAT 100
== END 2024-02-20 10:47 | disposition home or self-care (01) ==
PROVIDERS: Emergency Provider Nurse Practitioner Family; PCP Physician Assistant
DX: J02.0 Streptococcal pharyngitis (principal); Z87.891 Personal history of nicotine dependence; K21.9 Gastro-esophageal reflux disease without esophagitis
CPT/HCPCS: 87081; 87880; 99213; G0463

== ENCOUNTER 2024-05-12 13:25 | Outpatient (CLI) | payer BC, SELFPAY ==
--- NOTE | 2024-05-12 14:30 | NEURO_ITS ---
Impression: # Complains of paresthesia of upper extremities. Non-diabetic. # Normal Nerve Conduction Study; No Carpal Tunnel Syndrome or ulnar neuropathy. # Needle/EMG exam revealed some scarcity in left deltoid and triceps muscles. # Clinical correlation recommended; MRI of C-spine suggested. Nerve Conduction Studies Anti Sensory Summary Table Stim Site NR Peak (ms) P-T Amp (?V) Site1 Site2 Delta-P (ms) Dist (cm) Florencio (m/s) Left Median Anti Sensory (2-3nd Digit) Wrist 2.5 84.5 Wrist 2-3nd Digit 2.5 14.0 56 Wrist 2.5 81.2 Wrist 2-3nd Digit 2.5 14.0 56 Right Median Anti Sensory (2-3nd Digit) Wrist 2.8 52.3 Wrist 2-3nd Digit 2.8 14.0 50 Wrist 2.8 58.7 Wrist 2-3nd Digit 2.8 14.0 50 Left Radial Anti Sensory (Base 1st Digit) Wrist 1.8 45.7 Wrist Base 1st Digit 1.8 0.0 Right Radial Anti Sensory (Base 1st Digit) Wrist 1.6 35.1 Wrist Base 1st Digit 1.6 0.0 Left Sup Fibular Anti Sensory (Ant Lat Mall) 14 cm 2.6 12.9 14 cm Ant Lat Mall 2.6 16.0 62 Right Sup Fibular Anti Sensory (Ant Lat Mall) 14 cm 2.7 16.0 14 cm Ant Lat Mall 2.7 16.0 59 Left Sural Anti Sensory (Lat Mall) Calf 3.2 18.3 Calf Lat Mall 3.2 16.0 50 Right Sural Anti Sensory (Lat Mall) Calf 3.2 10.1 Calf Lat Mall 3.2 16.0 50 Left Ulnar Anti Sensory (5th Digit) Wrist 2.1 45.7 Wrist 5th Digit 2.1 14.0 67 Right Ulnar Anti Sensory (5th Digit) Wrist 1.9 70.9 Wrist 5th Digit 1.9 14.0 74 Motor Summary Table Stim Site NR Onset (ms) O-P Amp (mV) Site1 Site2 Delta-0 (ms) Dist (cm) Florencio (m/s) Left Median Motor (Abd Poll Brev) Wrist 2.3 2.1 Elbow Wrist 4.6 28.0 61 Elbow 6.9 1.8 Right Median Motor (Abd Poll Brev) Wrist 2.4 2.8 Elbow Wrist 4.6 28.0 61 Elbow 7.0 2.1 Left Peroneal Motor (Vastus Med) Ankle 4.0 3.6 Popit Ankle 7.3 40.0 55 Popit 11.3 2.7 Right Peroneal Motor (Vastus Med) Ankle 4.0 3.3 Popit Ankle 6.7 35.0 52 Popit 10.7 3.1 Left Tibial Motor (Abd Aguilar Brev) Ankle 4.1 5.9 Knee Ankle 7.3 38.0 52 Knee 11.4 3.8 Right Tibial Motor (Abd Aguilar Brev) Ankle 4.2 8.7 Knee Ankle 7.8 38.0 49 Knee 12.0 4.8 Left Ulnar Motor (Abd Dig Minimi) Wrist 2.1 1.2 A Elbow Wrist 5.2 30.0 58 A Elbow 7.3 2.1 Right Ulnar Motor (Abd Dig Minimi) Wrist 2.2 5.1 A Elbow Wrist 4.8 29.0 60 A Elbow 7.0 4.9 F Wave Studies NR F-Lat (ms) L-R F-Lat (ms) Left Median (Mrkrs) (Abd Poll Brev) 24.22 0.50 Right Median (Mrkrs) (Abd Poll Brev) 24.72 0.50 Left Peroneal (Mrkrs) (EDB) 44.84 1.87 Right Peroneal (Mrkrs) (EDB) 42.97 1.87 Left Tibial (Mrkrs) (Abd Hallucis) 44.42 0.12 Right Tibial (Mrkrs) (Abd Hallucis) 44.30 0.12 Left Ulnar (Mrkrs) (Abd Dig Min) 23.95 0.05 Right Ulnar (Mrkrs) (Abd Dig Min) 23.90 0.05 EMG Side Muscle Nerve Root Ins Act Fibs Amp Dur Recrt Comment Right 1stDorInt Ulnar C8-T1 Nml Nml Nml Nml Nml Right Ext Indicis Radial (Post Int) C7-8 Nml Nml Nml Nml Nml Right Ext Digitorum Radial (Post Int) C7-8 Nml Nml Nml Nml Nml Right BrachioRad Radial C5-6 Nml Nml Nml Nml Nml Right PronatorTeres Median C6-7 Nml Nml Nml Nml Nml Right Abd Poll Brev Median C8-T1 Nml Nml Nml Nml Nml
== END 2024-05-12 13:26 | disposition home or self-care (01) ==
LOC: ANHNEURO 13:28
PROVIDERS: PCP Physician Assistant; Visit Provider Physician Assistant
DX: R20.2 Paresthesia of skin (principal)
CPT/HCPCS: 95886; 95913